=== PATIENT | female | born 1965 | race Caucasian/White ===

== ENCOUNTER 2020-01-10 08:56 | Emergency (ER) | payer OTHER, SELFPAY ==
[2020-01-10 08:59] VITALS: BP 164/84; PULSE 102; RESP 20; TEMP 36.3; O2SAT 100
--- NOTE | 2020-01-10 09:18 | ED.GENADULT ---
HPI - General Adult General Chief complaint: Psychiatric Symptoms Stated complaint: Manic crisis Time Seen by Provider: 01/10/20 09:17 Source: patient Mode of arrival: ambulatory Limitations: no limitations History of Present Illness HPI narrative: Patient is a 54-year-old female with a history of bipolar disorder, has had previous manic outbreaks in the past who presents for inability to sleep and feeling as if she is having a manic episode. Patient states her symptoms have been ongoing for a week but worsened over the past 2 days, patient has been without sleep and is feeling very restless and agitated. She states that the social isolation due to the pandemic has caused her to feel very manic. She recently increased her Effexor dose per her psychiatrist, this occurred last week, but patient did not take the extra dose last night as patient was feeling like maybe that was contributing to her symptoms. She denies thoughts of wanting to hurt herself or harm others. No hallucinations. Related Data Home Medications Medication Instructions Recorded Confirmed omeprazole magnesium 20 mg 20 mg PO DAILY 06/04/19 06/28/19 tablet,delayed release cariprazine 3 mg capsule 3 mg PO DAILY 06/10/19 06/28/19 venlafaxine 150 mg 37.5 mg PO BID 06/10/19 06/28/19 capsule,extended release 24 hr acetazolamide See Rx Instructions .ROUTE .COMPLEX 12/19/19 12/19/19 Allergies Allergy/AdvReac Type Severity Reaction Status Date / Time doxycycline Allergy Unknown Hives Verified 01/10/20 09:14 lisinopril Allergy Unknown Hives Verified 01/10/20 09:14 Review of Systems Review of Systems: Narrative: CONSTITUTIONAL: Denies fever CARDIOVASCULAR: Denies chest pain RESPIRATORY: Denies cough or dyspnea. GASTROINTESTINAL: Denies abdominal pain SKIN: Denies rash MUSCULOSKELETAL: Denies back pain NEUROLOGIC: Denies headache PMF Surgical History Surgical History History of carpal tunnel surgery Family History Family History Father Hypertension Mother Hypertension Asthma Diabetes mellitus Family history of diabetes mellitus in first degree relative Sibling Hypertension Family history of elevated blood lipids Asthma Family history of hypercholesterolemia Grandparent Cerebrovascular accident Family history of coronary artery disease Other Acute myocardial infarction Social History Social History Smoking status: Former smoker Smoking end date: 06/25/15 Alcohol intake: current Exam Narrative: Exam Narrative: GENERAL: Awake, alert, conversant, fatigued appearing HEAD: Normocephalic, atraumatic. EYES: PERRLA and EOMI. ENT: Nares clear, no rhinorrhea or epistaxis. Mucous membranes moist. NECK: Supple. CHEST: No respiratory distress, breathing even and non labored HEART: Regular rate, sinus rhythm ABDOMEN:Non distended, non tender EXTREMITIES: Normal range of motion. No edema. SKIN: Warm, dry, no rash. NEURO:No focal deficits. Alert and oriented x3 Psych: Denies homicidal or suicidal ideation, reports agitation Course Vital Signs Vital signs: Vital Signs Temperature 36.3 C L 01/10/20 08:59 Pulse Rate 102 H 01/10/20 08:59 Respiratory Rate 20 01/10/20 08:59 Blood Pressure 164/84 H 01/10/20 08:59 Pulse Oximetry 100 01/10/20 08:59 Temperature 36.3 C L 01/10/20 08:59 Pulse Rate 98 01/10/20 10:53 Respiratory Rate 18 01/10/20 10:53 Blood Pressure 150/106 H 01/10/20 10:53 Pulse Oximetry 100 01/10/20 10:53 Medical Decision Making MDM Narrative Medical decision making narrative: Patient presented for evaluation of sleeplessness, concerned that she was having worsening marleny. Patient has history of manic episode in the past, and is worried that she might have a manic episode coming on if she does not get any medicatio
--- NOTE | 2020-01-10 09:20 | PC.NURSE ---
Pt states that she called [place] this morning was told to come to [place] and we would do intake with them over the phone. Pt upset that we do not do that and that we have to go through the psych clearance. Pt states she has not been able to sleep well since and has lack of concentration and states that she wants to get it under control before she has a psychotic episode. Pt calm and cooperative at this time
[2020-01-10 09:30] LABS: Basophils Absolute Auto 0.1 K/mm3 (0.0-0.1); Basophils Percent Auto 0.5 % (0.2-1.2); Eosinophils Percent Auto 0.3 % (0-4.4); Hematocrit 45.9 % (37.0-47.0); Hemoglobin 15.4 g/dL (12.0-15.0); Immature Granulocyte Absolute 0.05 K/mm3 (0.00-0.031); Immature Granulocyte Percent A 0.5 % (0-0.5); Lymphocytes Absolute Auto 3.05 K/mm3 (0.9-3.2); Lymphocytes Percent Auto 30.3 % (18.3-44.2); Mean Corpuscular HGB Conc 33.6 g/dl (32-36); Mean Corpuscular Hemoglobin 30.3 pg (26-34); Mean Corpuscular Volume 90.2 fl (80-100); Mean Platelet Volume 9.5 fl (7.4-10.4); Monocytes Absolute Auto 0.7 K/mm3 (0.1-0.6); Monocytes Percent Auto 7.1 % (2.6-8.5); Neutrophils Absolute Auto 6.2 K/mm3 (1.3-6.7); Neutrophils Percent Auto 61.3 % (45.5-73.1); Platelet Count Result 342 k/mm3 (150-375); Red Blood Count 5.09 M/mm3 (4.2-5.4); Red Cell Distribution Width 13.2 % (11.5-14.5); White Blood Count 10.1 K/mm3 (4.5-10.0)
[2020-01-10 09:33] LABS: Add Urine Microscopic? NO; Appearance Urine Clear (Clear); Bacteria Urine Trace /hpf; Bilirubin Urine Negative (Negative); Blood Urine Negative (Negative); Color Urine Straw (Yellow); Glucose Urine UA Negative (Negative); Ketones Urine Negative (Negative); Leukocyte Esterase Ur Negative LEU/UL (Negative); Nitrate Urine Negative (Negative); Protein Urine Negative (Negative); RBC Urine 0-2 /hpf (0-2); Specific Grav Ur 1.005 (1.001-1.035); Squamous Epithelial Cell Urine Occasional /hpf (Few); Urobilinogen Urine Negative mg/dL (<2.0); WBC Urine 0-3 /hpf
[2020-01-10 09:41] LABS: Amphetamine Screen Urine Negative (Negative); Barbiturate Screen Urine Negative (Negative); Benzodiazepines Screen Urine Negative (Negative); Cannabinoid Screen Urine Negative (Negative); Cocaine Screen Urine Negative (Negative); Methadone Screen Urine Negative (Negative); Opiate Screen Urine Negative (Negative); Phencyclidine Screen Urine Negative (Negative)
[2020-01-10 09:42] LABS: Ethanol < 10 mg/dL (<10)
[2020-01-10 09:46] LABS: Alanine Aminotransferase 37 U/L (4-35); Albumin Level 4.7 g/dL (3.5-5.1); Alkaline Phosphatase 92 U/L (38-126); Aspartate Amino Transferase 24 U/L (14-36); Bilirubin,Total 0.3 mg/dL (0.2-1.3); Blood Urea Nitrogen 12 mg/dL (7-17); Calcium 9.2 mg/dL (8.4-10.2); Carbon Dioxide 23 mmol/L (22-30); Chloride 102 mmol/L (98-107); Estimated CRCL calculation 116 ml/min; Estimated Glomerular Filt Rate > 60; Glucose 106 mg/dL (65-105); Potassium 3.3 mmol/L (3.4-5.0); Sodium 137 mmol/L (137-145)
[2020-01-10] MEDS: LORazepam 1 MG TABLET PO (10:49)
[2020-01-10 10:53] VITALS: BP 150/106; PULSE 98; RESP 18; O2SAT 100
== END 2020-01-10 11:23 | disposition home or self-care (01) ==
PROVIDERS: Emergency Provider Emergency Medicine; PCP Internal Medicine
DX: F31.9 Bipolar disorder, unspecified (principal)
CPT/HCPCS: 36415; 80053; 80307; 81003; 81025; 84443; 85025; 99283; A9270

== ENCOUNTER 2021-03-31 13:48 | Outpatient (CLI) | payer OTHER, SELFPAY ==
--- NOTE | ~2021-03-31 | DEXA_ITS ---
Bone Density Report Name: Suha Schwartz Age: 56 Sex: Female Ethnicity: White Date of : 1965 Indication: postmenopausal; height loss; Referring Provider: Tiffany Adkins Study: Bone densitometry was performed. Exam Date: March 31, 2021 Accession number: [id number] Bone Density: Region BMD T-score Z-score Classification AP Spine (L1-L4) 1.267 2.0 3.1 Normal Femoral Neck (Left) 0.813 -0.3 0.7 Normal Total Hip (Left) 1.063 1.0 1.7 Normal Total Hip Bilateral Avg 1.071 1.1 1.8 Normal Femoral Neck (Right) 0.802 -0.4 0.6 Normal Total Hip (Right) 1.078 1.1 1.8 Normal World Health Organization criteria for BMD impression classify patients as: Normal (T-score at or above -1.0), Osteopenia (T-score between -1.0 and -2.5), or Osteoporosis (T-score at or below -2.5). 10-year Fracture Risk: FRAX not reported because: All T-scores for Spine Total, Hip Total, Femoral Neck at or above -1.0 Clinical Information Provided by Patient: Patient maximum height was 63.5 Menopause Age: 51 No regular weight bearing exercise Drinks caffeinated beverages Onset of menses at age 15 Number of children 0 Impression: The patient has normal bone mass. Discussion: BONE DENSITY IS ABOVE THE MINIMUM DESIRABLE LEVEL AT ALL SKELETAL SITES TESTED. This patient?s bone mineral density is above the minimum desirable level (T-score -1.0 or better) at all sites measured. The patient should follow a healthful lifestyle (good nutrition with adequate calcium and vitamin D, and appropriate weight-bearing exercise). Follow-Up: Consider repeating this study in 5 years or sooner if there is some new clinical indication. Reported by: [facility] on 03/31/2021 2:19:00 PM. Reviewed, dictated and finalized at location A. [facility]
--- NOTE | ~2021-03-31 | MM_ITS ---
EXAMINATION: MM screening [facility] BI w matilde HISTORY: Screening mammogram TECHNIQUE: Craniocaudal and mediolateral oblique 3-D tomosynthesis images were obtained and synthetic 2-D images were generated. CAD analysis was submitted and interpreted. COMPARISON: 01/18/2019, 05/12/2017, 11/12/2014 BREAST PARENCHYMAL COMPOSITION: There are scattered areas of fibroglandular density. FINDINGS: There is no evidence of suspicious mass, calcification, or architectural distortion to sugg est malignancy in either breast. There has been no suspicious interval change. IMPRESSION: 1. No mammographic evidence of malignancy. 2. Recommend routine screening mammography in one year. BI-RADS Category 1: Negative Reviewed, dictated and finalized at location A.
== END 2021-03-31 13:49 | disposition home or self-care (01) ==
LOC: ANHIMG 13:50
PROVIDERS: PCP Internal Medicine; Visit Provider Nurse Practitioner
DX: Z12.31 Encounter for screening mammogram for malignant neoplasm of breast (principal); Z78.0 Asymptomatic menopausal state
CPT/HCPCS: 77063; 77067; 77080

== ENCOUNTER 2021-05-09 01:57 | Day surgery (SDC) | payer OTHER, SELFPAY ==
[2021-04-25 13:43] VITALS: BMI 41.0
[2021-05-09 07:39] VITALS: BP 142/94; PULSE 93; RESP 18; TEMP 36.3; O2SAT 98
[2021-05-09] MEDS: LACTATED RINGERS 1,000 ML 150 ML IV CONT (07:42)
--- NOTE | 2021-05-09 07:51 | WPDANESEPPF ---
Anes - Initial Pre Proc Eval Procedure: Operation Date: 05/09/21 08:30 Proposed Procedures p Screening Colonoscopy - Armando Campa MD Date/Time: 05/09/21 07:51 Surgeon: Armando Campa MD Pre Op Diagnosis: hx of colon polyps Patient Data Age: 56 Gender: F Height: 1.6 m Weight: 108.6 kg Last Vital Signs Temp 36.3 C L 05/09/21 07:39 Pulse 93 05/09/21 07:39 Resp 18 05/09/21 07:39 BP 142/94 H 05/09/21 07:39 Pulse Ox 98 05/09/21 07:39 Allergies Allergy/AdvReac Type Severity Reaction Status Date / Time doxycycline Allergy Mild Hives Verified 05/09/21 07:38 lisinopril Allergy Mild Hives Verified 05/09/21 07:38 Home Medications Medication Instructions Recorded Confirmed Type benztropine 1 mg tablet 1 mg PO BID tablet 11/23/20 05/09/21 History buspirone 15 mg tablet 15 mg PO TID 11/23/20 05/09/21 History escitalopram oxalate 20 mg tablet 20 mg PO DAILY 11/23/20 05/09/21 History haloperidol 5 mg tablet 15 mg PO DAILY tablet 11/23/20 05/09/21 History famotidine 40 mg tablet 40 mg PO DAILY #90 tablet 02/08/21 05/09/21 Rx valsartan-hydrochlorothiazide 1 tablet PO DAILY 04/25/21 05/09/21 History Patient hx anesthesia problems: none Family hx anesthesia problems: none Results Review: All pre-operative results and documents have been reviewed as part of the pre-operative evaluation. [facility] Past Medical History Medical History (Updated 05/09/21 @ 07:53 by Ayaz Fraser MD) Adult hypothyroidism Benign essential hypertension Bipolar affective disorder Carpal tunnel syndrome on both sides Encounter for long-term (current) use of other medications Former smoker IGT (impaired glucose tolerance) Morbid obesity with BMI of 40.0-44.9, adult Nummular eczema HEAVENLY on CPAP Other and unspecified hyperlipidemia Papilledema Pseudotumor cerebri Trigger thumb, right thumb Surgical History Surgical History History of carpal tunnel surgery Family History Family History Father Hypertension Mother Hypertension Asthma Diabetes mellitus Family history of diabetes mellitus in first degree relative Sibling Hypertension Family history of elevated blood lipids Asthma Family history of hypercholesterolemia Grandparent Cerebrovascular accident Family history of coronary artery disease Other Acute myocardial infarction Social History Social History Smoking packs per day: 1 Smoking cigarettes per day: 20.0 Years smoked: 15 Smoking pack-years: 15.00 Smoking status: Former smoker Tobacco type: cigarettes Second hand tobacco smoke exposure: Yes Smoking end date: 06/25/15 Alcohol intake: current Drinks per week: 4 Alcohol use details: Social Living arrangements: alone Spiritual care concerns: No Anes - Eval Final PreProcedure Day of Procedure 05/09/21 07:51 Patient weight: obese Heart: regular rate and rhythm Lungs: clear to auscultation and normal air movement Airway: Mallampati scale class II Neurological: alert and oriented Last oral intake: >/= 8 hours ASA classification: III Emergent: no Anesthetic plan: proceed Anesthesia type and monitoring: general GIVS Results Review: All pre-operative results and documents have been reviewed as part of the pre-operative evaluation. Informed Consent: The patient's anesthetic plan and its attendant risks and benefits were discussed with the patient/family/POA. Questions were solicited and answers provided to the satisfaction of the patient/family/POA.
--- NOTE | 2021-05-09 08:16 | PM.HPGS ---
History of Present Illness History of Present Illness Consent: Risks, benefits, and alternatives have been discussed and questions answered. Patient agrees to proceed with procedure. Chief complaint: hx of colon polyps Narrative: Suha Schwartz is a 56 year old female here for first screening colonoscopy Review of Systems Constitutional: Constitutional: Denies headache(s) and Denies weakness Eyes: Eyes: Denies blurry vision ENT: Reports Normal hearing present, Denies headache(s) and Denies neck pain Cardiovascular: Cardiovascular: Denies chest pain and Denies dyspnea Respiratory: Respiratory: Denies dyspnea Gastrointestinal: Gastrointestinal: Reports no additional gastrointestinal complaints Genitourinary: Genitourinary: Denies dysuria Musculoskeletal: Musculoskeletal: Denies neck pain Integumentary/Breasts: Skin/Breast: Denies dry skin Neurologic: Reports Normal hearing present, Denies headache(s) and Denies weakness Psychiatric: Psychiatric: Denies anxiety Endocrine: Endocrine: Denies change in body appearance Hematologic/Lymphatic: Hematologic/Lymphatic: Denies easy bleeding Allergic/Immunologic: Allergic/Immunologic: Denies urticaria PMFSH Past Medical History Medical History (Updated 05/09/21 @ 08:17 by Armando Campa MD) Adult hypothyroidism Benign essential hypertension Bipolar affective disorder Carpal tunnel syndrome on both sides Colon cancer screening Encounter for long-term (current) use of other medications Former smoker IGT (impaired glucose tolerance) Morbid obesity with BMI of 40.0-44.9, adult Nummular eczema HEAVENLY on CPAP Other and unspecified hyperlipidemia Papilledema Pseudotumor cerebri Trigger thumb, right thumb Surgical History Surgical History History of carpal tunnel surgery Family History Family History Father Hypertension Mother Hypertension Asthma Diabetes mellitus Family history of diabetes mellitus in first degree relative Sibling Hypertension Family history of elevated blood lipids Asthma Family history of hypercholesterolemia Grandparent Cerebrovascular accident Family history of coronary artery disease Other Acute myocardial infarction Social History Social History Smoking packs per day: 1 Smoking cigarettes per day: 20.0 Years smoked: 15 Smoking pack-years: 15.00 Smoking status: Former smoker Tobacco type: cigarettes Second hand tobacco smoke exposure: Yes Smoking end date: 06/25/15 Alcohol intake: current Drinks per week: 4 Alcohol use details: Social Living arrangements: alone Spiritual care concerns: No Meds Home Medications and Allergies Home Medications Medication Instructions Recorded Confirmed Type benztropine 1 mg tablet 1 mg PO BID tablet 11/23/20 05/09/21 History buspirone 15 mg tablet 15 mg PO TID 11/23/20 05/09/21 History escitalopram oxalate 20 mg tablet 20 mg PO DAILY 11/23/20 05/09/21 History haloperidol 5 mg tablet 15 mg PO DAILY tablet 11/23/20 05/09/21 History famotidine 40 mg tablet 40 mg PO DAILY #90 tablet 02/08/21 05/09/21 Rx valsartan-hydrochlorothiazide 1 tablet PO DAILY 04/25/21 05/09/21 History Allergies Allergy/AdvReac Type Severity Reaction Status Date / Time doxycycline Allergy Mild Hives Verified 05/09/21 07:38 lisinopril Allergy Mild Hives Verified 05/09/21 07:38 Vital Signs Vital Signs - 24 hr 05/09/21 07:39 Temperature 97.3 F L Pulse Rate 93 Respiratory Rate 18 Blood Pressure 142/94 H Pulse Oximetry 98 Exam Const: General: comfortable and no acute distress HENMT: General nose exam: Normal nares present Eyes: General: appearance normal, both eyes and all related structures Neck: Neck: no JVD Resp: Auscultation: clear to auscultation bilaterally Cardio:
[2021-05-09 08:43] VITALS: BP 113/78; PULSE 83; RESP 18; O2SAT 97
[2021-05-09 08:53] VITALS: BP 115/84; PULSE 82; RESP 16; O2SAT 98
[2021-05-09 09:03] VITALS: BP 121/79; PULSE 78; RESP 20; O2SAT 98
== END 2021-05-09 09:08 | disposition home or self-care (01) ==
PROVIDERS: PCP Internal Medicine; Visit Provider Internal Medicine Gastroenterology
PROC: 0DJD8ZZ Inspection of Lower Intestinal Tract, Via Natural or Artificial Opening Endoscopic (ICD-10-PCS; CPT 45378; principal; 2021-05-09 08:30)
DX: Z12.11 Encounter for screening for malignant neoplasm of colon (principal); D12.4 Benign neoplasm of descending colon; K64.8 Other hemorrhoids; K63.5 Polyp of colon; K51.80 Other ulcerative colitis without complications; E03.9 Hypothyroidism, unspecified; F31.89 Other bipolar disorder; R73.01 Impaired fasting glucose; G47.33 Obstructive sleep apnea (adult) (pediatric); E78.5 Hyperlipidemia, unspecified; Z87.891 Personal history of nicotine dependence; E66.01 Morbid (severe) obesity due to excess calories; Z68.41 Body mass index [BMI] 40.0-44.9, adult
CPT/HCPCS: 43235; 45380; 88305; J2704; J7120

== ENCOUNTER 2022-04-24 23:51 | Emergency (ER) | payer OTHER, SELFPAY ==
--- NOTE | ~2022-04-24 | XR_ITS ---
EXAMINATION: XR chest 2V DATE: 04/25/2022 00:13 INDICATION: Shortness of breath. Cough. TECHNIQUE: Frontal and lateral views of the chest were obtained. COMPARISON: Chest 2 views 05/29/2016, chest CT 05/09/2016 FINDINGS: There is mild atelectasis at left lung base. No pleural effusion or pneumothorax. The heart size is normal. IMPRESSION: 1. Mild atelectasis at left lung base. Reviewed, dictated and finalized at location A.
[2022-04-24 23:54] VITALS: BP 169/91; PULSE 100; RESP 19; TEMP 36.8; O2SAT 97
--- NOTE | 2022-04-24 23:54 | ECG_ITS ---
Measurements Intervals [place] Rate: 96 P: 64 WV: 170 QRS: 20 QRSD: 89 T: 55 QT: 325 QTc: 411 Interpretive Statements SINUS RHYTHM BORDERLINE ST-T WAVE ABNORMALITY- HIGH LAT LEADS BASELINE ARTIFACT- I, III, AVL, AVF, V4-V5 BORDERLINE ECG NO PREVIOUS ECG AVAILABLE FOR COMPARISON Electronically Signed On 04-25-2022 6:37:13 CDT by Valdo Ventura D.O.
[2022-04-25 00:14] LABS: Basophils Absolute Auto 0.1 K/mm3 (0.0-0.1); Basophils Percent Auto 0.7 % (0.2-1.2); Eosinophils Absolute Auto 0.1 K/mm3 (0-0.3); Eosinophils Percent Auto 1.5 % (0-4.4); Hematocrit 43.1 % (37.0-47.0); Hemoglobin 14.5 g/dL (12.0-15.0); Immature Granulocyte Absolute 0.04 K/mm3 (0.00-0.031); Immature Granulocyte Percent A 0.5 % (0-0.5); Lymphocytes Absolute Auto 3.31 K/mm3 (0.9-3.2); Lymphocytes Percent Auto 41.1 % (18.3-44.2); Mean Corpuscular HGB Conc 33.6 g/dl (32-36); Mean Corpuscular Hemoglobin 30.9 pg (26-34); Mean Corpuscular Volume 91.9 fl (80-100); Mean Platelet Volume 8.9 fl (7.4-10.4); Monocytes Absolute Auto 0.8 K/mm3 (0.1-0.6); Monocytes Percent Auto 10.2 % (2.6-8.5); Neutrophils Absolute Auto 3.7 K/mm3 (1.3-6.7); Platelet Count Result 314 k/mm3 (150-375); Red Blood Count 4.69 M/mm3 (4.2-5.4); Red Cell Distribution Width 12.9 % (11.5-14.5); White Blood Count 8.1 K/mm3 (4.5-10.0)
[2022-04-25 00:34] LABS: Alanine Aminotransferase 29 U/L (6-35); Albumin Level 4.5 g/dL (3.5-5.1); Alkaline Phosphatase 79 U/L (38-126); Anion Gap 13 mmol/L (8-16); Aspartate Amino Transferase 32 U/L (14-36); Bilirubin,Total 0.6 mg/dL (0.2-1.3); Blood Urea Nitrogen 9 mg/dL (7-17); Carbon Dioxide 29 mmol/L (22-30); Chloride 95 mmol/L (98-107); Estimated CRCL calculation 133 ml/min; Estimated Glomerular Filt Rate > 60; Glucose 114 mg/dL (65-110); Potassium 3.5 mmol/L (3.4-5.0); Sodium 137 mmol/L (137-145)
[2022-04-25 00:47] VITALS: PULSE 93; RESP 20; O2SAT 96
[2022-04-25] MEDS: predniSONE 40 MG, predniSONE 10 MG 50 MG PO (01:16)
[2022-04-25] MEDS: IPRATROPIUM BR 0.02% INH SOLN 0.5 MG/2.5 ML VIAL 1 MG INHALATION (01:24)
[2022-04-25] MEDS: ALBUTEROL SULFATE NEB 2.5 MG/3 ML INH 15 MG INHALATION (01:24)
[2022-04-25 01:25] VITALS: PULSE 84; RESP 18
[2022-04-25 01:30] LABS: Influenza A QL RT-PCR Negative (Negative); Influenza B QL RT-PCR Negative (Negative); SARS-CoV-2 RNA PCR Negative
[2022-04-25 01:47] VITALS: BP 142/81; PULSE 91; RESP 15; O2SAT 100
--- NOTE | 2022-04-25 02:14 | ED.URI ---
HPI - URI/Sore Throat General Chief Complaint: Upper Respiratory Infection Stated Complaint: cough Time Seen by Provider: 04/24/22 23:57 History of Present Illness HPI Narrative: Patient has had congestion, cough, runny nose for the last 5 days, recently started on antibiotics by her primary care doctor, she presented here because the coughing was starting to keep her up at night and she was also noticing some wheezing and shortness of breath. No chest pain, no lower extremity pain or swelling. Related Data Home Medications Medication Instructions Recorded Confirmed benztropine 1 mg tablet 1 mg PO BID 11/23/20 04/07/22 haloperidol 5 mg tablet 15 mg PO DAILY 11/23/20 04/07/22 vilazodone 40 mg tablet (Viibryd) 40 mg PO DAILY 08/12/21 04/07/22 Allergies Allergy/AdvReac Type Severity Reaction Status Date / Time doxycycline Allergy Mild Hives Verified 04/25/22 00:01 lisinopril Allergy Mild Hives Verified 04/25/22 00:01 Review of Systems Review of Systems: CONST: Chills. HEENT: Congestion C/V: No chest pain RESP: Cough GI: No nausea or vomiting : No dysuria. M/S: No joint pain. SKIN: No rash. NEURO: [No headache or focal numbness or weakness] PSYCH: [No depression] PMFSH Past Medical History Medical History Adult hypothyroidism Benign essential hypertension Bipolar affective disorder Carpal tunnel syndrome on both sides Colon cancer screening Encounter for long-term (current) use of other medications Former smoker IGT (impaired glucose tolerance) Morbid obesity with BMI of 40.0-44.9, adult Nummular eczema HEAVENLY on CPAP Other and unspecified hyperlipidemia Papilledema Pseudotumor cerebri Trigger thumb, right thumb Surgical History Surgical History History of carpal tunnel surgery Family History Family History Father Hypertension Mother Hypertension Asthma Diabetes mellitus Family history of diabetes mellitus in first degree relative Sibling Hypertension Family history of elevated blood lipids Asthma Family history of hypercholesterolemia Grandparent Cerebrovascular accident Family history of coronary artery disease Other Acute myocardial infarction Social History Social History Smoking packs per day: 1 Smoking cigarettes per day: 20.0 Years smoked: 15 Smoking pack-years: 15.00 Smoking status: Former smoker Tobacco type: cigarettes Second hand tobacco smoke exposure: Yes Smoking end date: 06/25/15 Alcohol intake: current Drinks per week: 4 Alcohol use details: Social Substance use: never Spiritual care concerns: No Exam Narrative: EXAMINATION OF ORGAN SYSTEMS/BODY AREAS: Constitutional: Vital signs per nursing GENERAL:[No acute distress, non-toxic appearing.] HEAD: Normal with no signs of head trauma. EYES: EOMI, conjunctiva normal ENT: Hearing grossly intact LUNGS: Nonlabored breathing. Prolonged end expiratory phase with some mild wheezing on expiration HEART: [Regular rate and rhythm] ABD: [Soft], [nontender to palpation] EXT: Normal range of motion; no lower extremity edema or tenderness SKIN: [No rashes or lesions.] NEURO: [Alert and oriented x 3. No gross focal sensory or strength deficits.] PSYCH: Normal affect Course Vital Signs Vital signs: Vital Signs Temperature 98.3 F 04/24/22 23:54 Pulse Rate 100 04/24/22 23:54 Respiratory Rate 19 04/24/22 23:54 Blood Pressure 169/91 H 04/24/22 23:54 Pulse Oximetry 97 04/24/22 23:54 Oxygen Delivery Room Air 04/24/22 23:54 Temperature 98.3 F 04/24/22 23:54 Pulse Rate 115 H 04/25/22 02:26 Respiratory Rate 18 04/25/22 02:26 Blood Pressure 152/77 H 04/25/22 02:26 Pulse Oximetry 100 04/25/22 02:26 Oxygen Delivery Room Air 04/24/22 23:59 MDM - URI/
[2022-04-25 02:26] VITALS: BP 152/77; PULSE 115; RESP 18; O2SAT 100
[2022-04-25] MEDS: ALBUTEROL SULFATE (*SP) INHALER 2 PUFF INHALATION (02:31)
[2022-04-25 02:32] VITALS: PULSE 121; RESP 18
== END 2022-04-25 02:40 | disposition home or self-care (01) ==
PROVIDERS: Emergency Provider Emergency Medicine; PCP Internal Medicine
DX: J06.9 Acute upper respiratory infection, unspecified (principal); Z20.822 Contact with and (suspected) exposure to COVID-19; E03.9 Hypothyroidism, unspecified; I10 Essential (primary) hypertension; E78.5 Hyperlipidemia, unspecified; E66.01 Morbid (severe) obesity due to excess calories; Z68.42 Body mass index [BMI] 45.0-49.9, adult; G47.33 Obstructive sleep apnea (adult) (pediatric); F31.9 Bipolar disorder, unspecified; Z87.891 Personal history of nicotine dependence; R94.31 Abnormal electrocardiogram [ECG] [EKG]
CPT/HCPCS: 36415; 71046; 80053; 85025; 87502; 93005; 94640; 99284; A9270; J7512; U0003; U0005

== ENCOUNTER → 2022-12-30 07:59 | Outpatient (CLI) | payer OTHER, SELFPAY ==
--- NOTE | ~2022-12-30 | MM_ITS ---
EXAMINATION: MM screening [facility] BI w matilde HISTORY: Screening mammogram TECHNIQUE: Craniocaudal and mediolateral oblique 3-D tomosynthesis images were obtained and synthetic 2-D images were generated. CAD analysis was submitted and interpreted. COMPARISON: 03/31/2021, 01/18/2019, 05/12/2017 BREAST PARENCHYMAL COMPOSITION: There are scattered areas of fibroglandular density. FINDINGS: No suspicious mass, calcification, or architectural distortion are identified in either kristian ast to suggest malignancy. There has been no suspicious interval change. IMPRESSION: 1. No mammographic evidence of malignancy. 2. Recommend routine screening mammography in one year. BI-RADS Category 1: Negative Reviewed, dictated and finalized at location B.
== END ==
PROVIDERS: PCP Nurse Practitioner; Visit Provider Obstetrics & Gynecology
DX: Z12.31 Encounter for screening mammogram for malignant neoplasm of breast (principal)
CPT/HCPCS: 77063; 77067

== ENCOUNTER 2023-02-23 16:53 | Emergency (ER) | payer OTHER, SELFPAY ==
[2023-02-23 17:08] VITALS: BP 168/98; PULSE 84; RESP 16; TEMP 36.2; O2SAT 97
--- NOTE | 2023-02-23 17:27 | ED.EAR ---
HPI - Ear Problem General Chief complaint: Ear Stated complaint: Ear bleed Time Seen by Provider: 02/23/23 17:28 Source: patient, RN notes reviewed and old records reviewed Mode of arrival: ambulatory Limitations: no limitations History of Present Illness HPI Narrative: 58-year-old female presents to the [facility] with complaints of bleeding from the right ear. States that she was using a Q-tip when she noticed bleeding. States he uses Q-tips daily to remove wax. Patient does report that she was using her Q-tips aggressively. States that her ears canals were itching and felt like she had a lot of wax in them. Related Data Home Medications Medication Instructions Recorded Confirmed vilazodone 40 mg tablet (Viibryd) 40 mg PO DAILY 08/12/21 02/23/23 haloperidol 5 mg tablet 5 mg PO DAILY 06/09/22 02/23/23 benztropine 1 mg tablet 1 mg PO DAILY 10/20/22 02/23/23 Allergies Allergy/AdvReac Type Severity Reaction Status Date / Time doxycycline Allergy Mild Hives Verified 02/23/23 15:34 lisinopril Allergy Mild Hives Verified 02/23/23 15:34 Review of Systems Review of Systems: All systems reviewed & are unremarkable except as noted in HPI and below Constitutional: Constitutional: Reports no additional constitutional complaints Eyes: Eyes: Reports no additional eye complaints ENT: Reports as per HPI and Reports otalgia (Right) Cardiovascular: Cardiovascular: Reports no additional cardiovascular complaints, Denies chest pain and Denies dyspnea Respiratory: Respiratory: Reports no additional respiratory complaints, Denies chest congestion, Denies cough and Denies dyspnea Gastrointestinal: Gastrointestinal: Reports no additional gastrointestinal complaints, Denies abdominal pain, Denies nausea and Denies vomiting Musculoskeletal: Musculoskeletal: Reports no additional musculoskeletal complaints Integumentary/Breasts: Skin/Breast: Reports system reviewed and no additional complaints, except as docu Neurologic: Reports system reviewed and no additional complaints, except as documented Psychiatric: Psychiatric: Reports no additional psychiatric complaints Allergic/Immunologic: Allergic/Immunologic: Reports no additional allergic/immunologic complaints PMFSH Past Medical History Medical History Adult hypothyroidism Benign essential hypertension Bipolar affective disorder Carpal tunnel syndrome on both sides Colon cancer screening Encounter for long-term (current) use of other medications Former smoker IGT (impaired glucose tolerance) Morbid obesity with BMI of 40.0-44.9, adult Nummular eczema HEAVENLY on CPAP Other and unspecified hyperlipidemia Papilledema Pseudotumor cerebri Trigger thumb, right thumb Surgical History Surgical History History of carpal tunnel surgery Family History Family History Father Hypertension Mother Hypertension Asthma Diabetes mellitus Family history of diabetes mellitus in first degree relative Sibling Hypertension Family history of elevated blood lipids Asthma Family history of hypercholesterolemia Grandparent Cerebrovascular accident Family history of coronary artery disease Other Acute myocardial infarction Social History Social History Smoking packs per day: 1 Smoking cigarettes per day: 20.0 Years smoked: 15 Smoking pack-years: 15.00 Smoking status: Former smoker Tobacco type: cigarettes Second hand tobacco smoke exposure: Yes Smoking end date: 06/25/15 Alcohol intake: current Drinks per week: 4 Alcohol use details: Social, moderate Substance use: never Substance use type: does not use Lack of Transportation: No Lack of Food: Never True Current Housing: I Have Housing Concerned About Future Housing: No Diffic
== END 2023-02-23 17:42 | disposition home or self-care (01) ==
PROVIDERS: Emergency Provider Nurse Practitioner; PCP Nurse Practitioner
DX: S00.411A Abrasion of right ear, initial encounter (principal); X58.XXXA Exposure to other specified factors, initial encounter; E03.9 Hypothyroidism, unspecified; I10 Essential (primary) hypertension; E66.01 Morbid (severe) obesity due to excess calories; Z68.43 Body mass index [BMI] 50.0-59.9, adult; G47.33 Obstructive sleep apnea (adult) (pediatric); F31.9 Bipolar disorder, unspecified; Z87.891 Personal history of nicotine dependence
CPT/HCPCS: 99213; G0463

== ENCOUNTER 2024-03-20 07:50 | Outpatient (CLI) | payer OTHER, SELFPAY ==
--- NOTE | 2024-04-03 13:45 | WPDSLEEPSTUD ---
Sleep Study Date of Study: 03/20/24 Ordering Provider: Tj Flores APRN Interpreting Physician: Kelsey Marcano MD Sleep Study Type: Split Polysomnogram Height: 1.6 m Weight: 142.882 kg Body Mass Index: 55.7 Neck Circumference (inches): 20.5 Solen: 19 Reason for Sleep Study Hypersomnolence; documented obstuctive sleep apnea, 06/19/2016 split night study, AHI 146.5 without REM and tana saturation 77%; optimal pressure CPAP 17 cm. 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 There is a family history of obstructive sleep apnea including a sibling and a father on CPAP. She has used CPAP previously years ago, optimal pressure was CPAP 17 cm. . She rarely awakens from sleep feeling short of breath. She never awakens at night with heartburn, belching or coughing. She always snores loudly enough that others complain about it. She does not have difficulty sleeping when she has a cold. She does not gasp for breath at night. She occasionally has breathing problems at night observed by others. She does not sweat excessively at night nor does she notice her heart pounding or beating irregularly at night. She constantly falls asleep during the day, constantly falls asleep involuntarily and occasionally, falls asleep while driving. She does not have loss of muscle tone with strong emotion. She always has daytime difficulties due to excessive sleepiness. She constantly feels paralyzed on waking or falling asleep. She frequently has vivid dreamlike scenes upon awakening or falling asleep. She rarely feels afraid to go to sleep. She does not have nightmares. She does not have dream recall. She rarely has racing thoughts. She rarely feels sad, depressed, or anxious. She rarely notices parts of her body jerking. She rarely kicks at night. She rarely has aching or crawling feelings in her legs. She rarely has any kind of leg pain at night. She does not have morning jaw pain. She rarely grinds her teeth during sleep. She is not bothered by pain during the day nor is she awakened by pain during the night. She rarely wakes up feeling stiff in the morning, rarely wakes up with sore or achy muscles. She occasionally wakes up with pain in the neck and spine. She has headaches and fatigue. Normal bedtime is 8:00 p.m. falling asleep within 30 minutes however sometimes she requires an hour to fall asleep. She typically wakes between 3 and 4 times during the night for just a brief amount of time to go to the bathroom. Her normal wake time is 5:00 a.m.. On weekends, bedtime is also 8:00 p.m. with recovery sleep, waking 8:00 a.m.. She estimates getting between 8 and 9 hours of sleep regularly. She takes naps in the afternoon or evening. A short nap lasting 10-15 minutes may be refreshing. She is usually drowsy for 3 hours or longer after waking. She feels better in the evening compared to other times of day. Habits: Tobacco: quit 2015, smoked 1 ppd x 15 yr Caffeine: 1-2 servings daily Alcohol: no longer Recreational substances: none PMFSH Past Medical History Medical History Adult hypothyroidism Benign essential hypertension Bipolar affective disorder Carpal tunnel syndrome on both sides Colon cancer screening Encounter for long-term (current) use of other medications Former smoker IGT (impaired glucose tolerance) Morbid obesity with BMI of 40.0-44.9, adult Nummular eczema HEAVENLY on CPAP Other and unspecified hyperlipidemia Papilledema Pseudotumor cerebri Right ear pain Trigger thumb, right thumb Surgical History Surgical History History of carpal tunnel surgery Family History Family History Father , Leukemia Hypertension Mother Hypertension Asth
[2024-04-03 14:12] VITALS: BMI 55.7
== END 2024-03-21 06:36 | disposition home or self-care (01) ==
LOC: ANHCSM 07:52
PROVIDERS: PCP Nurse Practitioner; Visit Provider Nurse Practitioner
DX: G47.33 Obstructive sleep apnea (adult) (pediatric) (principal); Z68.43 Body mass index [BMI] 50.0-59.9, adult
CPT/HCPCS: 95811

== ENCOUNTER 2024-04-25 20:34 | Emergency (ER) | payer OTHER, SELFPAY ==
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
[2024-04-25 20:36] VITALS: BP 154/93; PULSE 96; RESP 20; TEMP 36.3; O2SAT 96
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
[2024-04-25] MEDS: ACETAMINOPHEN 500 MG TABLET 1000 MG PO (21:44)
[2024-04-25] MEDS: IBUPROFEN 600 MG TABLET PO (21:45)
--- NOTE | 2024-04-25 22:34 | PC.NURSE ---
patient came out of room at this time asking about how long it will be before radiology arrives. pt. informed that ER goes by acuity. patient then asked for water, same given.
--- NOTE | 2024-04-25 22:56 | PC.NURSE ---
patient in ct at this time.
== END 2024-04-26 00:22 | disposition home or self-care (01) ==
PROVIDERS: Emergency Provider Physician Assistant; PCP Nurse Practitioner
DX: S13.4XXA Sprain of ligaments of cervical spine, initial encounter (principal); I10 Essential (primary) hypertension; E78.5 Hyperlipidemia, unspecified; E03.9 Hypothyroidism, unspecified; E66.01 Morbid (severe) obesity due to excess calories; Z68.43 Body mass index [BMI] 50.0-59.9, adult; G47.33 Obstructive sleep apnea (adult) (pediatric); Z87.891 Personal history of nicotine dependence; Z79.899 Other long term (current) drug therapy; V49.40XA Driver injured in collision with unspecified motor vehicles in traffic accident, initial encounter
CPT/HCPCS: 72125; 72128; 72131; 99284; A9270

== ENCOUNTER 2024-06-07 10:07 | Outpatient (CLI) | payer OTHER, SELFPAY ==
--- NOTE | ~2024-06-07 | MM_ITS ---
EXAMINATION: MM screening aliyah BI w matilde HISTORY: Screening TECHNIQUE: Craniocaudal and mediolateral oblique 3-D tomosynthesis images were obtained and synthetic 2-D images were generated. CAD analysis was submitted and interpreted. COMPARISON: Comparison to multiple prior studies sequentially, with oldest reviewed study dated 11/12. BREAST PARENCHYMAL COMPOSITION: Not dense: There are scattered areas of fibroglandular density. FINDINGS: There is no evidence of suspicious mass, calcification, or architectural distortion to sugg est malignancy in either breast. There has been no suspicious interval change. IMPRESSION: 1. No mammographic evidence of malignancy. 2. Recommend routine screening mammography in one year. BI-RADS Category 1: Negative Reviewed, dictated and finalized at location B. CADDY
== END 2024-06-07 10:08 | disposition home or self-care (01) ==
PROVIDERS: PCP Nurse Practitioner; Visit Provider Internal Medicine
DX: Z12.31 Encounter for screening mammogram for malignant neoplasm of breast (principal)
CPT/HCPCS: 77063; 77067

== ENCOUNTER → 2024-07-03 15:27 | Outpatient (REF) | payer OTHER, SELFPAY | LOC: ANHLAB 15:27 | PROVIDERS: Visit Provider Plastic Surgery | DX: D22.5 Melanocytic nevi of trunk (principal) | CPT/HCPCS: 88305 ==

== ENCOUNTER 2024-11-21 01:28 | Day surgery (SDC) | payer OTHER, SELFPAY ==
[2024-11-14 09:48] VITALS: BMI 55.8
--- OUTSIDE RECORDS SUMMARY | 2024-11-21 01:30 | XMS_ITS ---
Author Organization [facility] Address [address] [place] [address] Care Team Providers Care Cns Name Role Phone Gee Branch DO Primary Care Provider Adenike Bryant Unavailable [phone] Allergies Allergen (clinical drug ingredient) Drug/Non Drug Allergy documented on EMR Reaction Allergy Type Onset Date Status Lisinopril Unknown Drug Allergy 09/27/2023 Activ e doxycycline Doxycycline Unknown Drug Allergy 09/27/2023 Ac tive Medications Medication SIG (Take, Route, Frequency, Duration) Notes Start Date End Date Status Saxenda 18 MG/3ML Subcutaneous 09/27/2023 Not-Taking Viibryd 40 MG 1 tablet with food Oral Once a day for 30 days Active Haloperidol 5 MG 1 tablet Orally Once a day for 90 days d/c 1 mg dose Active Benztropine Mesylate 1 MG 1 tablet Orally Once a day for 30 days Active Haloperidol 1 MG 1 tablet Oral bedtime for 30 days Active Spironolactone 50 MG Oral 09/27/2023 Active BD ULTRA-FINE PEN NEEDLE 32 gauge x MISCELLANEOUS *Reorder from [facility] for eRx and Interaction Alerts* 09/27/2023 Active Vilazodone HCl 40 MG Oral 09/27/2023 Active Omeprazole 20 MG Oral 09/27/2023 Ac tive acetaZOLAMIDE ER 500 MG Oral 09/27/2023 Active Valsartan 160 MG Oral 09/27/2023 Ac tive Social History Sex Assigned At : Social History Observation Description Sex Assigned At Female Encounters Encounter Location Date Provider Diagnosis [facility] [employer] [facility] [address] [place] [address] 05/09/2024 Adenike Knutson Bipolar disorder, in partial remission, most recent episode hypomanic F31.71 ; Generalized anxiety disorder F41.1 ; Bipolar disorder, current episode depressed, mild F31.31 ; Other symptoms and signs involving the musculoskeletal system R29.898 ; 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 The patient experiences excessive daytime sleepiness and fatigue. - Plan: Patient to obtain a BiPAP machine. Encourage patient to use the machine consistently and follow up with the sleep specialist for further evaluation and management. 1. Bipolar I disorder - AIMS= 0 09/06/21 AIMS= 0 08/14/23 Haldol 5 mg 1 tablet bedtime monitor for psychosis, marleny, delusions, paranoia and depression educated on all medications, metabolic and movement d/o educated on all medications, benefits, side effects and risk, and educated on depression, anxiety, and ADHD, mood d/o and educated on compliance of medications, metabolic and movement d/o education appointment's, continue therapy discussion with patient about course of treatmentand patient instructions. education on serotonin syndrome obtain labs PCP Prescription Monitoring Report reviewed SSRI/SNRI side effects discussed including but not limited to, gastric upset, nausea, vomiting, diarrhea and/or constipation, weight changes, sexual side effects including loss of libido, increased suicidal thoughts/behavior s in children and young adults, and serotonin syndrome. Second generation antipsychotics (SGAs) have metabolic syndrome issues with weight gain, increase in prolactin, increased waist circumference, increased lipids, and increased glucose. Thus routine monitoring of weight, metabolic labs, etc. is indicated. A general rank ordering of antipsychotics that have the greatest to the least risk of metabolic effects is olanzapine, quetiapine, risperidone, ziprasidone, and aripiprazole. However, weight gain can occur with all of these drugs and considerable variability exists among patients receiving the same drug regarding the risk of metabolic effects. Anti-psychotic agents not only increase the risk of metabolic disorder, they also increase the risk of CVA, akathisia, and movement disorders including EPS or tardive dyskinesia (more common with first generation antipsychotics) and more. 2. Generalized anxiety disorder - Viibryd 40 mg daily and eat 350 calories 3. Abnormal movement - Benztropine 1 mg daily AIMS -0 09/06/21 AIMS=0 12/22/22 AIMS= 0 08/14/23 stable 4. Long-term drug therapy 05/09/2024 Generalized anxiety disorder (ICD-10 - F41.1) Sleep Apnea - Assessment: The patient reports a sleep study diagnosis of severe sleep apnea with 156 events per hour and oxygen levels dropping to 71%. The patient experiences excessive daytime sleepiness and fatigue. - Plan: Patient to obtain a BiPAP machine. Encourage patient to use the machine consistently and follow up with the sleep specialist for further evaluation and management. 1. Bipolar I disorder - AIMS= 0 09/06/21 AIMS= 0 08/14/23 Haldol 5 mg 1 tablet bedtime monitor for psychosis, marleny, delusions, paranoia and depression educated on all medications, metabolic and movement d/o educated on all medications, benefits, side effects and risk, and educated on depression, anxiety, and ADHD, mood d/o and educated on compliance of medications, metabolic and movement d/o education appointment's, continue therapy discussion with patient about course of treatmentand patient instructions. education on serotonin syndrome obtain labs PCP Prescription Monitoring Report reviewed SSRI/SNRI side effects discussed including but not limited to, gastric upset, nausea, vomiting, diarrhea and/or constipation, weight changes, sexual side effects including loss of libido, increased suicidal thoughts/behavior s in children and young adults, and serotonin syndrome. Second generation antipsychotics (SGAs) have metabolic syndrome issues with weight gain, increase in prolactin, increased waist circumference, increased lipids, and increased glucose. Thus routine monitoring of weight, metabolic labs, etc. is indicated. A general rank ordering of antipsychotics that have the greatest to the least risk of metabolic effects is olanzapine, quetiapine, risperidone, ziprasidone, and aripiprazole. However, weight gain can occur with all of these drugs and considerable variability exists among patients receiving the same drug regarding the risk of metabolic effects. Anti-psychotic agents not only increase the risk of metabolic disorder, they also increase the risk of CVA, akathisia, and movement disorders including EPS or tardive dyskinesia (more common with first generation antipsychotics) and more. 2. Generalized anxiety disorder - Viibryd 40 mg daily and eat 350 calories 3. Abnormal movement - Benztropine 1 mg daily AIMS -0 09/06/21 AIMS=0 12/22/22 AIMS= 0 08/14/23 stable 4. Long-term drug therapy 05/09/2024 Bipolar disorder, current episode depressed, mild (ICD-10 - F31.31) Sleep Apnea - Assessment: The patient reports a sleep study diagnosis of severe sleep apnea with 156 events per hour and oxygen levels dropping to 71%. The patient experiences excessive daytime sleepiness and fatigue. - Plan: Patient to obtain a BiPAP machine. Encourage patient to use the machine consistently and follow up with the sleep specialist for further evaluation and management. 1. Bipolar I disorder - AIMS= 0 09/06/21 AIMS= 0 08/14/23 Haldol 5 mg 1 tablet bedtime monitor for psychosis, marleny, delusions, paranoia and depression educated on all medications, metabolic and movement d/o educated on all medications, benefits, side effects and risk, and educated on depression, anxiety, and ADHD, mood d/o and educated on compliance of medications, metabolic and movement d/o education appointment's, continue therapy discussion with patient about course of treatmentand patient instructions. education on serotonin syndrome obtain labs PCP Prescription Monitoring Report reviewed SSRI/SNRI side effects discussed including but not limited to, gastric upset, nausea, vomiting, diarrhea and/or constipation, weight changes, sexual side effects including loss of libido, increased suicidal thoughts/behavior s in children and young adults, and serotonin syndrome. Second generation antipsychotics (SGAs) have metabolic syndrome issues with weight gain, increase in prolactin, increased waist circumference, increased lipids, and increased glucose. Thus routine monitoring of weight, metabolic labs, etc. is indicated. A general rank ordering of antipsychotics that have the greatest to the least risk of metabolic effects is olanzapine, quetiapine, risperidone, ziprasidone, and aripiprazole. However, weight gain can occur with all of these drugs and considerable variability exists among patients receiving the same drug regarding the risk of metabolic effects. Anti-psychotic agents not only increase the risk of metabolic disorder, they also increase the risk of CVA, akathisia, and movement disorders including EPS or tardive dyskinesia (more common with first generation antipsychotics) and more. 2. Generalized anxiety disorder - Viibryd 40 mg daily and eat 350 calories 3. Abnormal movement - Benztropine 1 mg daily AIMS -0 09/06/21 AIMS=0 12/22/22 AIMS= 0 08/14/23 stable 4. Long-term drug therapy 05/09/2024 Other symptoms and signs involving the musculoskeletal system (ICD-10 - R29.898) Sleep Apnea - Assessment: The patient reports a sleep study diagnosis of severe sleep apnea with 156 events per hour and oxygen levels dropping to 71%. The patient experiences excessive daytime sleepiness and fatigue. - Plan: Patient to obtain a BiPAP machine. Encourage patient to use the machine consistently and follow up with the sleep specialist for further evaluation and management. 1. Bipolar I disorder - AIMS= 0 09/06/21 AIMS= 0 08/14/23 Haldol 5 mg 1 tablet bedtime monitor for psychosis, marleny, delusions, paranoia and depression educated on all medications, metabolic and movement d/o educated on all medications, benefits, side effects and risk, and educated on depression, anxiety, and ADHD, mood d/o and educated on compliance of medications, metabolic and movement d/o education appointment's, continue therapy discussion with patient about course of treatmentand patient instructions. education on serotonin syndrome obtain labs PCP Prescription Monitoring Report reviewed SSRI/SNRI side effects discussed including but not limited to, gastric upset, nausea, vomiting, diarrhea and/or constipation, weight changes, sexual side effects including loss of libido, increased suicidal thoughts/behavior s in children and young adults, and serotonin syndrome. Second generation antipsychotics (SGAs) have metabolic syndrome issues with weight gain, increase in prolactin, increased waist circumference, increased lipids, and increased glucose. Thus routine monitoring of weight, metabolic labs, etc. is indicated. A general rank ordering of antipsychotics that have the greatest to the least risk of metabolic effects is olanzapine, quetiapine, risperidone, ziprasidone, and aripiprazole. However, weight gain can occur with all of these drugs and considerable variability exists among patients receiving the same drug regarding the risk of metabolic effects. Anti-psychotic agents not only increase the risk of metabolic disorder, they also increase the risk of CVA, akathisia, and movement disorders including EPS or tardive dyskinesia (more common with first generation antipsychotics) and more. 2. Generalized anxiety disorder - Viibryd 40 mg daily and eat 350 calories 3. Abnormal movement - Benztropine 1 mg daily AIMS -0 09/06/21 AIMS=0 12/22/22 AIMS= 0 08/14/23 stable 4. 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 The patient experiences excessive daytime sleepiness and fatigue. - Plan: Patient to obtain a BiPAP machine. Encourage patient to use the machine consistently and follow up with the sleep specialist for further evaluation and management. 1. Bipolar I disorder - AIMS= 0 09/06/21 AIMS= 0 08/14/23 Haldol 5 mg 1 tablet bedtime monitor for psychosis, marleny, delusions, paranoia and depression educated on all medications, metabolic and movement d/o educated on all medications, benefits, side effects and risk, and educated on depression, anxiety, and ADHD, mood d/o and educated on compliance of medications, metabolic and movement d/o education appointment's, continue therapy discussion with patient about course of treatmentand patient instructions. education on serotonin syndrome obtain labs PCP Prescription Monitoring Report reviewed SSRI/SNRI side effects discussed including but not limited to, gastric upset, nausea, vomiting, diarrhea and/or constipation, weight changes, sexual side effects including loss of libido, increased suicidal thoughts/behavior s in children and young adults, and serotonin syndrome. Second generation antipsychotics (SGAs) have metabolic syndrome issues with weight gain, increase in prolactin, increased waist circumference, increased lipids, and increased glucose. Thus routine monitoring of weight, metabolic labs, etc. is indicated. A general rank ordering of antipsychotics that have the greatest to the least risk of metabolic effects is olanzapine, quetiapine, risperidone, ziprasidone, and aripiprazole. However, weight gain can occur with all of these drugs and considerable variability exists among patients receiving the same drug regarding the risk of metabolic effects. Anti-psychotic agents not only increase the risk of metabolic disorder, they also increase the risk of CVA, akathisia, and movement disorders including EPS or tardive dyskinesia (more common with first generation antipsychotics) and more. 2. Generalized anxiety disorder - Viibryd 40 mg daily and eat 350 calories 3. Abnormal movement - Benztropine 1 mg daily AIMS -0 09/06/21 AIMS=0 12/22/22 AIMS= 0 08/14/23 stable 4. Long-term drug therapy 05/09/2024 Morbid (severe) obesity due to excess calories (ICD-10 - E66.01) Sleep Apnea - Assessment: The patient reports a sleep study diagnosis of severe sleep apnea with 156 events per hour and oxygen levels dropping to 71%. The patient experiences excessive daytime sleepiness and fatigue. - Plan: Patient to obtain a BiPAP machine. Encourage patient to use the machine consistently and follow up with the sleep specialist for further evaluation and management. 1. Bipolar I disorder - AIMS= 0 09/06/21 AIMS= 0 08/14/23 Haldol 5 mg 1 tablet bedtime monitor for psychosis, marleny, delusions, paranoia and depression educated on all medications, metabolic and movement d/o educated on all medications, benefits, side effects and risk, and educated on depression, anxiety, and ADHD, mood d/o and educated on compliance of medications, metabolic and movement d/o education appointment's, continue therapy discussion with patient about course of treatmentand patient instructions. education on serotonin syndrome obtain labs PCP Prescription Monitoring Report reviewed SSRI/SNRI side effects discussed including but not limited to, gastric upset, nausea, vomiting, diarrhea and/or constipation, weight changes, sexual side effects including loss of libido, increased suicidal thoughts/behavior s in children and young adults, and serotonin syndrome. Second generation antipsychotics (SGAs) have metabolic syndrome issues with weight gain, increase in prolactin, increased waist circumference, increased lipids, and increased glucose. Thus routine monitoring of weight, metabolic labs, etc. is indicated. A general rank ordering of antipsychotics that have the greatest to the least risk of metabolic effects is olanzapine, quetiapine, risperidone, ziprasidone, and aripiprazole. However, weight gain can occur with all of these drugs and considerable variability exists among patients receiving the same drug regarding the risk of metabolic effects. Anti-psychotic agents not only increase the risk of metabolic disorder, they also increase the risk of CVA, akathisia, and movement disorders including EPS or tardive dyskinesia (more common with first generation antipsychotics) and more. 2. Generalized anxiety disorder - Viibryd 40 mg daily and eat 350 calories 3. Abnormal movement - Benztropine 1 mg daily AIMS -0 09/06/21 AIMS=0 12/22/22 AIMS= 0 08/14/23 stable 4. Long-term drug therapy Plan Of Treatment Medication Medication Name Sig Start Date Stop Date Notes Viibryd 40 MG 1 tablet with food O ral Once a day for 30 days Haloperidol 5 MG 1 tablet Orally Once a day for 90 days d/c 1 mg dose Benztropine Mesylate 1 MG 1 tablet Orall y Once a day for 30 days Haloperidol 1 MG 1 tablet Oral bedtim e for 30 days Next Appt Details Provider Name:Adenike Knutson , 01/02/2025 08:45:00 AM, [address], [facility], [place], [address], Progress Notes * ERA COURTNEY LDOB: [birth year] (59 yo F)Acc No.[id number]:05/09/2024 Patient: ERA CHEN Provider: YVONNE AVNIA :1965 A ge:59 Y S ex:Female Date:05/09/2024 Address:[address] [place] [address], [facility] Pcp:Gee Branch DO Subjective: * Chief Complaints: * * HPI: H istory of Presenting Problem: Bipolar DisorderReported by pilar cintron.Type: B ipolar I hx online scams and money Notes: Follow up Bipolar and anxiety chronic stable since last visit report I am doing well I feel depression and anxiety is doing pretty well and I struggle with my weight I am tackling it with joined a gym and over all my rx is helping and keeping me stable I am having a sleep study I am tired in day and I fall asleep at work x2 and snoring and boss was concern in a meeting I fall asleep at desk, I been taking B12 and electrolytes in water, I go to bed 8-9 pm and up 5 am for gym 3 days a week other days a week 6 am and up for bathroom and back to bed and need PA for sleep study and and insurance said I do not and I have had sleep apnea before and CPAP, I been gaining weight last 60 days and new job and not working from home FT and been there 90 days, nice review from boss, 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 I listen to music and pray and I go into office 4 days a week in [place], all rx doing good no s/e, I am on not feeling sad or down no hopeless or helpless and beter situation with money and will be able to reduce amount I have to pay out and I am signed up with debt resolution person, I got a raise with new job, I am not anxious or restless and only complaint drowsy and brain fog, and appetite fine, I do greens shake daily, I do have ETOH daily 2 drinks (educated on may cause fatigue and medical issues/risk), several years ago my sleep apnea was severe, c oncentration and focus is not bad when sleepy, other that good and able to function I make mistakes when drowsy, no abnormal movement involuntary noted or reported, Viibyrd and Haldol all rx doing good and motivation and interest good, I like ot nap and rest with my weight, no psychosis no delusions no paranoia, no marleny no SI/HI and I am still dealing with money issues from [employer], I did meet another leslie online ask me for money and I told him no and ended. HX 3 major psychotic breaks since age 31, 1996, 2009, 2019 hx Auditory hallucinations ETOH 2-3 cocktails daily rx HX Abilify (weight gain and increase B/S), Haldol, Vraylar, Viibyrd. Effexor, Ambien, Cymbalta, Buspar, Lexapro. * ROS: P atient reports w eight gain (___lbs). S he reports d ry mouth. Sleep study scheduled hx severe sleep apnea S he reports G ERD (on rx) b ut reports no nausea, no vomiting, no constipation, and normal appetite. She reports i ncreased urinary frequency. She reports a rthralgias/joint pain and back pain b ut reports no difficulty walking. She reports wears glasses/contact lenses. She reports no shortness of breath when walking, no shortness of breath when lying down, and no palpitations. S he reports no cough and no shortness of breath. She reports no gait dysfunction. She reports no depression, no sleep disturbances, no alcohol abuse, no anxiety, no hallucinations, no suicidal thoughts, no mood swings, no memory loss, and no agitation. 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 * Medications: T aking Viibryd 40 MG Tablet 1 tablet with food Oral Once a day , Taking Benztropine Mesylate 1 MG Tablet 1 tablet Orally Once a day , Taking Valsartan 160 MG Tablet Oral , Taking acetaZOLAMIDE ER 500 MG Capsule Extended Release 12 Hour Oral , Taking Omeprazole 20 MG Capsule Delayed Release Oral , Taking Spironolactone 50 MG Tablet Oral , Taking Vilazodone HCl 40 MG Tablet Oral , Taking BD ULTRA-FINE PEN NEEDLE 32 gauge x 5/32 NEEDLE, DISPOSABLE MISCELLANEOUS , Notes to Pharmacist: *Reorder from [facility] for eRx and Interaction Alerts*, Taking Haloperidol 5 MG Tablet 1 tablet Orally Once a day , Notes to Pharmacist: d/c 1 mg dose, Not-Taking Saxenda 18 MG/3ML Solution Pen-injector Subcutaneous , Medication List reviewed and reconciled with the patient * Allergies: L isinopril: Allergy - Onset Date 09/27/2023, Doxycycline: Allergy - Onset Date 09/27/2023. Objective: * Vitals: * Examination: P sychiatry: Appearance: w ell-groomed, well-nourished, appears stated age, obese. Affect / mood: a ppropriate, full range. Homicidal ideation: n one. Suicidal ideation: n one. Delusions: n o. Hallucinations: n o. Impulse control: f air. Judgement: f air. Orientation: a wake, alert and oriented x 3. Speech / language: a ppropriate pitch/modulation, clear and coherent, normal rate, volume, and articulation (RVR), proper grammar used. G eneral Examination: C onstitutional:: G eneral Appearance (with 3 Vital) o verweight a nd o bese a nd alert, well-groomed, clean, well developed, and appears well rested. B ehavior: cooperative, calm, pleasant, and eye contact Good. Musculoskeletal: P sychiatric:Thought Processes * logical, C oherent thought processes, goal-directed thought process, no thought blocking, and (normal) no approximate answering. Thought Content: No suicidal ideations and suicidal: plan and unremarkable, no ideas of reference, obsessions, NO suicidal intent, and no dangerousness: suicide risk. Psychiatric Mood: * euthymic. Gait And Stance:* sitting . Muscle Strength and tone normal strength upper extremities and in lower extremities; normal muscle tone and bulk; and no tremor, tics, or involuntary movements (dyskinesia). Psychiatric: Speech: * language is appropriate for education level and rate/ fluency intact and speech is articulate and coherent and volume is normal. Psychiatric: Associations * no loosening of associations and No clang associations. Psychiatric: Abnormal or Psychotic thoughts no hallucinations. Affect: pleasant, happy, and congruent to thought content. Psychiatric Insight * is aware of psychiatric problems and acts appropriately in social situations. 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 Orientation: oriented to person, place, situation, and time; normal attention and concentrating ability; and memory intact. Attention/Concentration: attention span sustained without motivating activities. L anguage: recognize objects. Assessment: * Assessment: 1. B ipolar disorder, in partial remission, most recent episode hypomanic - F31.71 (Primary)? 2. G eneralized anxiety disorder - F41.1 3 . B ipolar disorder, current episode depressed, mild - F31.31 4 . O ther symptoms and signs involving the musculoskeletal system - R29.898 5 . O ther assisted (current) drug therapy - Z79.899 6 . M orbid (severe) obesity due to excess calories - E66.01 Sleep Apnea - Assessment: The patient reports a sleep study diagnosis of severe sleep apnea with 156 events per hour and oxygen levels dropping to 71%. The patient experiences excessive daytime sleepiness and fatigue. - Plan: Patient to obtain a BiPAP machine. Encourage patient to use the machine consistently and follow up with the sleep specialist for further evaluation and management. 1. Bipolar I disorder - AIMS= 0 09/06/21 AIMS= 0 08/14/23 Haldol 5 mg 1 tablet bedtime monitor for psychosis, marleny, delusions, paranoia and depression educated on all medications, metabolic and movement d/o educated on all medications, benefits, side effects and risk, and educated on depression, anxiety, and ADHD, mood d/o and educated on compliance of medications, metabolic and movement d/o education appointment's, continue therapy discussion with patient about course of treatmentand patient instructions. education on serotonin syndrome obtain labs PCP Prescription Monitoring Report reviewed SSRI/SNRI side effects discussed including but not limited to, gastric upset, nausea, vomiting, diarrhea and/or constipation, weight changes, sexual side effects including loss of libido, increased suicidal thoughts/behaviors in children and young adults, and serotonin syndrome. Second generation antipsychotics (SGAs) have metabolic syndrome issues with weight gain, increase in prolactin, increased waist circumference, increased lipids, and increased glucose. Thus routine monitoring of weight, metabolic labs, etc. is indicated. A general rank ordering of antipsychotics that have the greatest to the least risk of metabolic effects is olanzapine, quetiapine, risperidone, ziprasidone, and aripiprazole. However, weight gain can occur with all of these drugs and considerable variability exists among patients receiving the same drug regarding the risk of metabolic effects. Anti-psychotic agents not only increase the risk of metabolic disorder, they also increase the risk of CVA, akathisia, and movement disorders including EPS or tardive dyskinesia (more common with first generation antipsychotics) and more. 2. Generalized anxiety disorder - Viibryd 40 mg daily and eat 350 calories 3. Abnormal movement - Benztropine 1 mg daily AIMS -0 09/06/21 AIMS=0 12/22/22 AIMS= 0 08/14/23 stable 4. Long-term drug therapy Plan: * Treatment: 2. O ther symptoms and signs involving the musculoskeletal system Refill Benztropine Mesylate Tablet, 1 MG, 1 tablet, Orally, Once a day, 30 days, 30, Refills 3.? * Billing Information: * Visit Code: * Procedure Codes: * Electronic signature of YVONNE Krishnamurthy on 11/21/2024 at 01:30 AM CDT Sign off status: Pending * Provider: YVONNE AVINA Date: 07/09/2023 Generated for Hesham contreras/Prateek/Iván on: 11/21/2024 01:30 AM CDT History and Physical Notes * HPI (History of Present Illness) Category Sub-Category Detail Notes Category Not es History of Presenting Problem Bipolar DisorderReported by patient.Type: Bipolar I hx online scams and money Notes: Follow up Bipolar and anxiety chronic stable since last visit report I am doing well I feel depression and anxiety is doing pretty well and I struggle with my weight I am tackling it with joined a gym and over all my rx is helping and keeping me stable I am having a sleep study I am tired in day and I fall asleep at work x2 and snoring and boss was concern in a meeting I fall asleep at desk, I been taking B12 and electrolytes in water, I go to bed 8-9 pm and up 5 am for gym 3 days a week other days a week 6 am and up for bathroom and back to bed and need PA for sleep study and and insurance said I do not and I have had sleep apnea before and CPAP, I been gaining weight last 60 days and new job and not working from home FT and been there 90 days, nice review from rom[employer], 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 I listen to music and pray and I go into office 4 days a week in [place], all rx doing good no s/e, I am on not feeling sad or down no hopeless or helpless and beter situation with money and will be able to reduce amount I have to pay out and I am signed up with debt resolution person, I got a raise with new job, I am not anxious or restless and only complaint drowsy and brain fog, and appetite fine, I do greens shake daily, I do have ETOH daily 2 drinks (educated on may cause fatigue and medical issues/risk), several years ago my sleep apnea was severe, concentration and focus is not bad when sleepy, other that good and able to function I make mistakes when drowsy, no abnormal movement involuntary noted or reported, Viibyrd and Haldol all rx doing good and motivation and interest good, I like ot nap and rest with my weight, no psychosis no delusions no paranoia, no marleny no SI/HI and I am still dealing with money issues from scam, I did meet another leslie online ask me for money and I told him no and ended. HX 3 major psychotic breaks since age 31, 1996, 2009, 2019 hx Auditory hallucinations ETOH 2-3 cocktails daily rx HX Abilify (weight gain and increase B/S), Haldol, Vraylar, Viibyrd. Effexor, Ambien, Cymbalta, Buspar, Lexapro Examination Category Sub-Category Detail Notes Category Not es Psychiatry Appearance: well-groomed, we ll-nourished, appears stated age, obese Orientation: awake, alert and clau ented x 3 Affect / mood: appropriate, full ra nge Speech / language: appropriate pitch/mo dulation, clear and coherent, normal rate, volume, and articulation (RVR), proper grammar used Judgement: fair Suicidal ideation: none Homicidal ideation: none Impulse control: fair Delusions: no Hallucinations: no General Examination Constitutional:: General Appearance (with 3 Vital) overweight and obese and alert, well-groomed, clean, well developed, and appears well rested. Behavior: cooperative, calm, pleasant, and eye contact Good. Musculoskeletal: Psychiatric:Thought Processes * logical, Coherent thought processes, goal-directed thought process, no thought blocking, and (normal) no approximate answering. Thought Content: No suicidal ideations and suicidal: plan and unremarkable, no ideas of reference, obsessions, NO suicidal intent, and no dangerousness: suicide risk. Psychiatric Mood: * euthymic. Gait And Stance:* sitting . Muscle Strength and tone normal strength upper extremities and in lower extremities; normal muscle tone and bulk; and no tremor, tics, or involuntary movements (dyskinesia). Psychiatric: Speech: * language is appropriate for education level and rate/ fluency intact and speech is articulate and coherent and volume is normal. Psychiatric: Associations * no loosening of associations and No clang associations. Psychiatric: Abnormal or Psychotic thoughts no hallucinations. Affect: pleasant, happy, and congruent to thought content. Psychiatric Insight * is aware of psychiatric problems and acts appropriately in social situations. 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 Orientation: oriented to person, place, situation, and time; normal attention and concentrating ability; and memory intact. Attention/Concentration: attention span sustained without motivating activities. Language: recognize objects.
--- OUTSIDE RECORDS SUMMARY | 2024-11-21 01:30 | XMS_ITS | Continuity of Care Document ---
Author Organization [facility] Address [address] [place] [address] [address] [place] [address] Phone Care Team Providers Care Amusement Park Entertainer Name Role Phone Edilberto Harley Unavailable Unavailable Procedures Procedure Date Office/outpatient Visit, Est Eye Exam & Treatment Ophthalmoscopy, Subsequent Eye Exam & Treatment Ophthalmoscopy, Subsequent Office/outpatient Visit, New Advance Directives Directive Yes / No Effective Date File Name No Information Encounters Encounter Description Practice Location Reason(s) For Visit Diagnoses Date Provider Providers Copied on Encounter Office/outpat ient Visit, Est [facility], [address] [place] [address] [address], [place], [place], [id number], [place] tel:[phone] [facility] No Information 201 0 Cricket Casanova. [address], [place], [place], [facility], [place]. tel:[phone] [facility], [address] [place] [address] [address], [place], [place], [id number], [place] tel:[phone] [facility] No Information 0 Shahzad Fraser. [address], [place], [facility], [place]. tel:[phone] Referring Provider: Evelio Love, [address], [place], [facility]. tel:[phone] [facility], [address] [place] [address] [address], [place], [place], [id number], [place] tel:[phone] [facility] No Information 0 Shahzad Fraser. [address] [facility], [place], [address], [place]. tel:[phone] Referring Provider: Edilberto Mcgrath, [address], [place], [address]. tel:[phone] Office/outpat ient Visit, [facility], [address], [place], [place], [id number], [place] tel:[phone] [facility] No Information 0 Cricket Casanova. [address], [place], [address], [place]. tel:[phone] Referring Provider: Jalny Katz OD, [address] [facility] [address], [place], [address]. tel:[phone] Family History Family Member Type Diagnosis Age At Onset No Information Payers Payer name Insurance type Covered alliance party ID Authormirza mcguire(s) [facility] Out Of State [id number] Social History Type Description Quantity Date Captured Comments Sex Female Smoking Status No Information Chief Complaint And Reason For Visit No Information Reason For Referral Reason For Referral No Information History Of Present Illness Encounter Date Complaint History Of Prese nt Illness No Information Functional Status Date Functional Assessmen t No Information Instructions Date Instruction Additional Infor mation No Information Assessments Type Assessment Date No Information Patient Care Teams Name Effective Dates (start - stop) Status Members No Information
--- OUTSIDE RECORDS SUMMARY | 2024-11-21 01:30 | XMS_ITS | Patient Health Record ---
Author Organization [facility] Address [address] [place] [address] Care Team Providers Care Group Director Name Role Phone [place] Primary Care Provider Allergies Allergen (clinical drug ingredient) Drug/Non Drug Allergy documented on EMR Reaction Allergy Type Onset Date Status Lisinopril hives Drug Allergy Active doxycycline Doxycycline hives Drug Allergy Act ana Reason For Referral No Information Medications Medication SIG (Take, Route, Frequency, Duration) Notes Start Date End Date Status LORazepam 1 MG 1 tablet at bedtime as needed Orally Once a day Active Haloperidol 5 MG 1 tablet bedtime Ora lly Once a day for 30 days Active Omeprazole 20 MG 1 capsule 30 minutes before morning meal Orally Once a day for 30 day(s) Active Valsartan-hydroCHLOROthia zide 160-12.5 MG 1 tablet Orally Once a day for 30 day(s) Active Haloperidol Decanoate 100 MG/ML 1 ml Intramuscular monthly for 30 day(s) Active busPIRone HCl 15 MG 1 tablet Orally Twic e a day for 30 days Active Benztropine Mesylate 1 MG 1 tablet at be dtime Orally Once a day for 30 days Active Social History Tobacco Use: Social History Observation Description Date Details (start date - stop date) Former Smoker NA - NA Dont use, Tobacco Use/Smoking Question Answer Notes Are you a former smoker Problems Problem Type SNOMED Code ICD Code Onset Dates Problem Status W/U Status Risk Notes Problem Bipolar 1 disorder (025386983) Bipolar 1 disorder (F31.9) Active confirmed Problem Psychosis (F29) Active confirmed Plan Of Treatment No Information Insurance Providers Payer Name Payer Address Payer Phone Subscriber Number Group Number Insured Name Patient Relationship to Insured Coverage Start Date Coverage End Date [facility] Attn Claims Department [address] [place] [address] [id number] Suha Schwartz Self - patient is the insured 0 Medications Administered Medication Instructions Date of Administration Dosage Notes Haldol decanoate 07/09/2020 100 mg Manufact by [employer]. Pt annette well. Haldol decanoate 08/03/2020 100 mg Manufact by [employer]. Pt annette well. Medical (General) History Surgical History Surgery Date(Month/Year) Right Hand carpal tunnel Left Hand carpal tunnel
--- OUTSIDE RECORDS SUMMARY | 2024-11-21 01:30 | XMS_ITS | Clinical Summary ---
Author Organization [facility] Address [address] [place] [address] Care Team Providers Care Continuity Clerk Name Role Phone Gee Branch DO Primary Care Provider [phone] Source Comments [facility],non-owned Affiliates and Associated Physician Practices is amultiple site organization consisting of ambulatory clinics and hospital sitesin [place], [place], [place] and [place]. This disclosure is being madepursuant to the Care Everywhere program and may not contain all information available regarding this patient. Last updated 18.[facility] Allergies Active Allergy Reactions Criticality Noted Date Comments Doxycycline Urticaria Medium 11/11/2018 Lisinopril Urticaria Medium 11/11/2018 Medications * Be aware that medications may not be up to date on this document. Alwaysverify current medications with the patient. VALSARTAN-HYDRO CHLOROTHIAZIDE PO Take 1 tablet by mouth once daily Active levothyroxine (SYNTHROID) 125 MCG tablet Take 125 mcg by mouth daily before breakfast Active venlafaxine XR 24hr (EFFEXOR XR) 75 MG capsule Take 37.5 mg by mouth daily with breakfast Active omeprazole (PRILOSEC) 20 MG capsule Take 20 mg by mouth daily before breakfast Active Black Cohosh-SoyIsofl av-Magnol (ESTROVEN MENOPAUSE RELIEF) CAPS Take 1 tablet by mouth once daily Active Multiple Vitamin (MULTI VITAMIN PO) Take 1 tablet by mouth once daily Active VRAYLAR 3 MG capsule TK 1 C PO QD 0 9 Active acetaZOLAMIDE ER 12hr (DIAMOX SEQUELS) 500 MG capsule Take 2 capsules by mouth 2 times daily 150 capsule 4 0 Active Active Problems Problem Noted Date Diagnosed Date Papilledema Choroidal nevus of left eye Family History Medical History Relation Name Comments Hypertension Father Cataract Mother Diabetes - Type 2 Mother Hypertension Mother Hypertension Sister Glaucoma Neg Hx Relation Name Status Comments Father Mother Sister Social History Tobacco Use Types Packs/Day Years Used Date Smoking Tobacco: Former Cigarettes Q uit: 2014 Smokeless Tobacco: Never Comments:quit 3 years ago Alcohol Use Standard Drinks/Week Comments Not Currently 0 (1 standard drink = 0.6 oz pur e alcohol) Comments No Sex and Gender Information Value Date Recorded Sex Assigned at Not on file Legal Sex 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 Gender Identity Not on file Sexual Orientation Not on file Last Filed Vital Signs Vital Sign Reading Time Taken Comments Blood Pressure 150/81 11/28/2018 11:56 AM CDT Pulse 106 11/28/2018 7:40 AM CDT Temperature 36.8 C (98.3 F) 11/28/2018 7:40 AM CDT Respiratory Rate 18 11/28/2018 7:40 AM CDT Oxygen Saturation 97% 11/28/2018 11:59 AM CDT Inhaled Oxygen Concentration - - Weight 122.9 kg (271 lb) 12/16/2019 3:35 PM CDT Height 160 cm (5' 3) 02/17/2019 12:03 PM CDT Body Mass Index 48.01 02/17/2019 12:03 PM CDT Plan of Treatment Health Maintenance Due Date Last Done Comments COLOGUARD (AGES 45-75) - COL ON CA SCREENING 1966 COLON MONITORING 1966 COLONOSCOPY - COLON CA SCREENING 1966 CT COLONOGRAPHY - COLON CA SCREENING 1966 Colorectal Cancer Screening 1966 FIT - COLON CA SCREENING 1966 FLEX SIG - COLON CA SCREENING 1966 LIPID TESTING 1966 MAMMOGRAM 1966 PAP SMEAR 1966 HIV SCREENING 1981 HEPATITIS C SCREENING 01/23/1984 DTAP/TDAP/TD VACCINES (1 - Tdap) 1985 HEPATITIS B VACCINE (1 of 3 - 19+ 3-dose series) 1985 PNEUMOCOCCAL VACCINE 50+ (1 of 1 - PCV) 01/28/2016 ZOSTER VACCINE (1 of 2) 01/28/2016 SCREENING FOR DIABETES 02/17/2019 COVID-19 VACCINE (1 - 2023-2 5 season) 2024 DEPRESSION SCREENING 06/25/2024 INFLUENZA VACCINE (Season Ended) 2025 HIB VACCINE Aged Out No longer eligi ble based on patient's age to complete this topic HPV VACCINE Aged Out No longer eligi ble based on patient's age to complete this topic MENINGOCOCCAL (Group B) VACC INE SHARED DECISION-MAKING Aged Out No longer eligibl e based on patient's age to complete this topic MENINGOCOCCAL GROUPS A/C/Y/W VACCINE Aged Out No longer eligible b ased on patient's age to complete this topic Insurance [facility] Member Subscriber Plan / Payer (Ef fective for All Dates) Name:Era Courtney Relation to Subscriber:Self Name:ERA COURTNEY Payer ID:[id number] (NAIC) Group ID:Not on file Type:Medicaid Managed Care Address: [facility] CLAIMS DEPARTMENT [place] [id number] SELF PAY NO INSURANCE Member Subscriber Plan / Payer (Ef fective for All Dates) Name:Era Courtney Member ID:Not on file Relation to Subscriber:Self Name:ERA COURTNEY Subscriber ID:Not on file Payer ID:Not on file Group ID:Not on file Type:Self Pay Address: [place], [place] [employer] Member Subscriber Plan / Payer (Ef fective for All Dates) Name:Era Courtney Relation to Subscriber:Self Name:Era Courtney Payer ID:Not on file Group ID:Not on file Type:Commercial Address: [address] Care Teams Continuity Clerk Relationship Specialty Start Date End Date Gee Branch DO [address] [place] [address] PCP - General 04/29/19
--- OUTSIDE RECORDS SUMMARY | 2024-11-21 01:31 | XMS_ITS | Data Portability ---
Author Organization [place] - [facility], Lucía Gramajo Address [address] [place] [address] Care Team Providers Care Technical Support Assistant Name Role Phone VIKI MCCAULEY Primary Care Provider ADENIKE KNUTSON Psychiatrist DHRUV MARCANO Health Evaluator [facility] Maintenance Mechanic Assessment Encounter Date Assessment Date Assessment LastModified by Organization Details LastModified Time 07/03/2024 07/03/2024 R AC successful. 1 SST, 1 LAV collected per BVoyda ROLLER CLEANER. Not available 07/03/2024 12:03:04 Plan of Treatment Reminders Order Date Submit Date Provider Last Modified By Organization Details Last Modified Time Details Appointments InPerson; Chronic Disease Mgmt 2024 10:00A M Mahi Gary DIRECTOR TRIAL Not available Not available Not available Lab lipid panel, serum 2024 025 [facility] [place], [address], 07/04/2024 08:25:18 HbA1c (hemoglob in A1c), blood 2024 025 [place] [facility] [place], [address], 07/04/2024 08:25:19 thyroid panel, serum 2024 025 [facility] [place], [address], 07/04/2024 08:25:19 CBC w/ auto diff 2024 025 [place] [facility] [address] [facility], [place], [address], 07/04/2024 08:25:17 Hepatitis C IgG Ab, qual, serum 2024 025 [place] [facility]), [address] [facility], [place], [address], 07/04/2024 08:25:20 Referral gastroent erologist referral 2024 025 [email or web address] Oleg Villegas MD, [address], [address], [place], [address], 10/31/2024 10:56:44 Procedures None recorded. Surgeries None recorded. Imaging LDCT, chest, for lung cancer screening 2024 025 [email or web address] [facility], [address], [address], [place], [address], 07/09/2024 13:28:28 Medication Orders spironola ctone 50 mg tablet 2024 025 [id number], [address] [place], [place], [id number], 08/18/2024 10:20:15 valsartan 160 mg tablet 2024 025 [id number], [address], [place], [id number], 08/18/2024 10:20:15 omeprazol e 20 mg capsule,d elayed release 2024 025 [facility], [address] [facility], [place], [place], [id number], 07/03/2024 12:04:10 Patient TargetsNo targets recorded. Patient Instructions Encounter Date Encounter Id Patient Instructions Last Modified By Organization Details Last Modified Time 07/03/2024 [id number] gastroesophageal reflux disease (GERD): care instructions Not available 07/03/2024 11:58:31 bipolar disorder : care instructions Not available 07/03/2024 14:05:03 learning about m ood disorders Not available 07/03/2024 14:05:03 body mass index: care instructions Not available 07/03/2024 11:47:57 learning about healthy weight Not available 07/03/2024 11:47:57 07/07/2024 [id number] high cholesterol : care instructions Not available 07/07/2024 12:41:56 08/18/2024 [id number] high blood press ure: care instructions Not available 08/18/2024 10:19:45 learning about h igh blood pressure Not available 08/18/2024 10:19:45 Reason for Referral Director Of Individual Giving Referral for Screening for malignant neoplasm of colon Screening Referring Physician: Mahi Gary, Family Medicine, Encounter Date: 07/03/2024 Results Created Date Observation Date Name Description Value Unit Range Abnormal Flag Note LastModifiedBy Organization Detail LastModifiedTime 07/03/1907/04/2024 CBC WITH DIFFE RENTI AL/PL ATELE T WBC 7.1 x10e3 /uL 3.4-10 .8 normal Not Available [facility] ([facility]) [address] [place], [address], 07/04/2024 08:25:17 07/03/1907/04/2024 CBC WITH DIFFE RENTI AL/PL ATELE T RBC 4.68 x10e6 /uL 3.77-5 .28 normal Not Available [facility] ([facility]) [address] [place], [address], 07/04/2024 08:25:17 07/03/19 25 07/04/2024 CBC WITH DIFFE RENTI AL/PL ATELE T hemoglobin 14.5 g/dL 11.1-1 5.9 normal Not Available [facility] ([facility]) [address] [place], [address], 07/04/2024 08:25:17 07/03/1907/04/2024 CBC WITH DIFFE RENTI AL/PL ATELE T hematocrit 43.2 % 34.0-4 6.6 normal Not Available [facility] ([facility]) [address] [place], [address], 07/04/2024 08:25:17 07/03/1907/04/2024 CBC WITH DIFFE RENTI AL/PL ATELE T MCV 92 fL 79-97 normal Not Available [facility] ([facility]) [address] [place], [address], 07/04/2024 08:25:17 07/03/1907/04/2024 CBC WITH DIFFE RENTI AL/PL ATELE T MCH 31.0 pg 26.6-3 3.0 normal Not Available [facility] ([facility]) [address] [place], [address], 07/04/2024 08:25:17 07/03/1907/04/2024 CBC WITH DIFFE RENTI AL/PL ATELE T MCHC 33.6 g/dL 31.5-3 5.7 normal Not Available [facility] ([facility]) [address] [place], [address], 07/04/2024 08:25:17 07/03/1907/04/2024 CBC WITH DIFFE RENTI AL/PL ATELE T RDW 12.7 % 11.7-1 5.4 Not Available [facility] ([facility]) [address] [place], [address], 07/04/2024 08:25:17 07/03/19 25 07/04/2024 CBC WITH DIFFE RENTI AL/PL ATELE T platelets 276 x10e3 /uL 150-45 0 normal Not Available [facility] ([facility]) [address] [facility], [place], [address], 07/04/2024 08:25:17 07/03/1907/04/2024 CBC WITH DIFFE RENTI AL/PL ATELE T neutrophils 58 % not estab. normal Not Available [facility] ([facility]) [address] [facility], [place], [address], 07/04/2024 08:25:17 07/03/1907/04/2024 CBC WITH DIFFE RENTI AL/PL ATELE T lymphs 29 % not estab. normal Not Available [facility] ([facility]) [address] [facility], [place], [address], 07/04/2024 08:25:17 07/03/19 25 07/04/2024 CBC WITH DIFFE RENTI AL/PL ATELE T monocytes 11 % not estab. normal Not Available [facility] ([facility]) [address] [facility], [place], [address], 07/04/2024 08:25:17 07/03/1907/04/2024 CBC WITH DIFFE RENTI AL/PL ATELE T eos 0 % not estab. normal Not Available [facility] ([facility]) [address] [facility], [place], [address], 07/04/2024 08:25:17 07/03/1907/04/2024 CBC WITH DIFFE RENTI AL/PL ATELE T basos 1 % not estab. normal Not Available [facility] ([facility]) [address] [facility], [place], [address], 07/04/2024 08:25:17 07/03/19 25 07/04/2024 CBC WITH DIFFE RENTI AL/PL ATELE T immature cells DIRECTOR TRIAL Not Available [facility]) [address] [facility], [place], [address], 07/04/2024 08:25:17 07/03/1907/04/2024 CBC WITH DIFFE RENTI AL/PL ATELE T neutrophils (absolute) 4.1 x10e3 /uL 1.4-7. 0 normal Not Available [facility] ([facility]) [address] [facility], [place], [address], 07/04/2024 08:25:17 07/03/1907/04/2024 CBC WITH DIFFE RENTI AL/PL ATELE T lymphs (absolute) 2.1 x10e3 /uL 0.7-3. 1 normal Not Available [facility] ([facility]) [address] [place], [address], 07/04/2024 08:25:17 07/03/1907/04/2024 CBC WITH DIFFE RENTI AL/PL ATELE T monocytes(ab solute) 0.7 x10e3 /uL 0.1-0. 9 normal Not Available [facility] ([facility]) [address] [facility], [place], [address], 07/04/2024 08:25:17 07/03/19 25 07/04/2024 CBC WITH DIFFE RENTI AL/PL ATELE T eos (absolute) 0.0 x10e3 /uL 0.0-0. 4 normal Not Available [facility] ([facility]) [address] [place], [address], 07/04/2024 08:25:17 07/03/1907/04/2024 CBC WITH DIFFE RENTI AL/PL ATELE T baso (absolute) 0.0 x10e3 /uL 0.0-0. 2 normal Not Available [facility] ([facility]) [address] [place], [address], 07/04/2024 08:25:17 07/03/1907/04/2024 CBC WITH DIFFE RENTI AL/PL ATELE T immature granulocytes 1 % not estab. Not Available [facility] ([facility]) [address] [facility], [place], [address], 07/04/2024 08:25:17 07/03/1907/04/2024 CBC WITH DIFFE RENTI AL/PL ATELE T immature grans (abs) 0.1 x10e3 /uL 0.0-0. 1 Not Available [facility] ([facility]) [address] [facility], [place], [address], 07/04/2024 08:25:17 07/03/19 25 07/04/2024 CBC WITH DIFFE RENTI AL/PL ATELE T NRBC DIRECTOR TRIAL Not Available [facility] ([facility]) [address] [facility], [place], [address], 07/04/2024 08:25:17 07/03/19 25 07/04/2024 CBC WITH DIFFE RENTI AL/PL ATELE T hematology comments: DIRECTOR TRIAL Not Available [facility] ([facility]) [address] [facility], [place], [address], 07/04/2024 08:25:17 07/03/1907/04/2024 COMP. METAB OLIC PANEL (14) glucose 98 mg/dL 70-99 normal Not Available [facility] ([facility]) [address] [facility], [place], [address], 07/04/2024 08:25:18 07/03/19 25 07/04/2024 COMP. METAB OLIC PANEL (14) BUN 11 mg/dL 6-24 normal Not Available [facility] ([facility]) [address] [facility] [place], [address], 07/04/2024 08:25:18 07/03/19 25 07/04/2024 COMP. METAB OLIC PANEL (14) creatinine 0.70 mg/dL 0.57-1 .00 normal Not Available [facility] ([facility]) [address] [facility], [place], [address], 07/04/2024 08:25:18 07/03/19 25 07/04/2024 COMP. METAB OLIC PANEL (14) eGFR 100 mL/mi n/1.7 3 >59 normal Not Available [facility] ([facility]) [address] [facility], [place], [address], 07/04/2024 08:25:18 07/03/19 25 07/04/2024 COMP. METAB OLIC PANEL (14) BUN/creatini ne ratio 16 9-23 normal Not Available [facility] ([facility]) [address] [facility], [place], [address], 07/04/2024 08:25:18 07/03/19 25 07/04/2024 COMP. METAB OLIC PANEL (14) sodium 138 mmol/ L 134-14 4 normal Not Available [facility] ([facility]) [address] [facility], [place], [address], 07/04/2024 08:25:18 07/03/19 25 07/04/2024 COMP. METAB OLIC PANEL (14) potassium 4.3 mmol/ L 3.5-5. 2 normal Not Available [facility] ([facility]) [address] [facility], [place], [address], 07/04/2024 08:25:18 07/03/19 25 07/04/2024 COMP. METAB OLIC PANEL (14) chloride 96 mmol/ L 96-106 normal Not Available [facility] ([facility]) [address] [facility], [place], [address], 07/04/2024 08:25:18 07/03/19 25 07/04/2024 COMP. METAB OLIC PANEL (14) carbon dioxide, total 26 mmol/ L 20-29 normal Not Available [facility] ([facility]) [address] [facility], [place], [address], 07/04/2024 08:25:18 07/03/19 25 07/04/2024 COMP. METAB OLIC PANEL (14) calcium 9.5 mg/dL 8.7-10 .2 normal Not Available [facility] ([facility]) [address] [place], [address], 07/04/2024 08:25:18 07/03/19 25 07/04/2024 COMP. METAB OLIC PANEL (14) protein, total 6.9 g/dL 6.0-8. 5 normal Not Available [facility] ([facility]) [address] [place], [address], 07/04/2024 08:25:18 07/03/19 25 07/04/2024 COMP. METAB OLIC PANEL (14) albumin 4.4 g/dL 3.8-4. 9 normal Not Available [facility] ([facility]) [address] [place], [address], 07/04/2024 08:25:18 07/03/19 25 07/04/2024 COMP. METAB OLIC PANEL (14) globulin, total 2.5 g/dL 1.5-4. 5 Not Available [facility] ([facility]) [address] [place], [address], 07/04/2024 08:25:18 07/03/19 25 07/04/2024 COMP. METAB OLIC PANEL (14) bilirubin, total 0.4 mg/dL 0.0-1. 2 normal Not Available [facility] ([facility]) [address] [place], [address], 07/04/2024 08:25:18 07/03/19 25 07/04/2024 COMP. METAB OLIC PANEL (14) alkaline phosphatase 74 IU/L 44-121 normal Not Available [facility] ([facility] [address] [place], [address], 07/04/2024 08:25:18 07/03/19 25 07/04/2024 COMP. METAB OLIC PANEL (14) AST (SGOT) 24 IU/L 0-40 normal Not Available [facility] ([facility]) [address] [facility] [place], [address], 07/04/2024 08:25:18 07/03/19 25 07/04/2024 COMP. METAB OLIC PANEL (14) ALT (SGPT) 37 IU/L 0-32 above high normal Not Available [facility] ([facility]) [address] [facility] [place], [address], 07/04/2024 08:25:18 07/03/19 25 07/04/2024 LIPID PANEL W/ CHOL/ HDL RATIO cholesterol, total 203 mg/dL 100-19 9 above high normal Not Available [facility] ([facility]) [address] [facility] [place], [address], 07/04/2024 08:25:18 07/03/19 25 07/04/2024 LIPID PANEL W/ CHOL/ HDL RATIO triglyceride s 104 mg/dL 0-149 normal Not Available [facility] ([facility]) [address] [facility] [place], [address], 07/04/2024 08:25:18 07/03/19 25 07/04/2024 LIPID PANEL W/ CHOL/ HDL RATIO HDL cholesterol 59 mg/dL >39 normal Not Available [facility] ([facility] [address] [place], [address], 07/04/2024 08:25:18 07/03/19 25 07/04/2024 LIPID PANEL W/ CHOL/ HDL RATIO VLDL cholesterol artur 19 mg/dL 5-40 Not Available [facility] ([facility]) [address] [place], [address], 07/04/2024 08:25:18 07/03/19 25 07/04/2024 LIPID PANEL W/ CHOL/ HDL RATIO LDL chol calc ([facility]) 125 mg/dL 0-99 above high normal Not Available [facility] ([facility]) [address] [place], [address], 07/04/2024 08:25:18 07/03/1907/04/2024 LIPID PANEL W/ CHOL/ HDL RATIO LDL calc comment: DIRECTOR TRIAL Not Available [facility] ([facility]) [address] [place], [address], 07/04/2024 08:25:18 07/03/19 25 07/04/2024 LIPID PANEL W/ CHOL/ HDL RATIO T. chol/HDL ratio 3.4 ratio 0.0-4. 4 T. Chol/ HDL Ratio Men Women 1/2 Avg.R isk 3.4 3.3 Avg.R isk 5.0 4.4 2X Avg.R isk 9.6 7.1 3X Avg.R isk 23.4 11.0 Not Available [facility] ([facility]) [address] [place], [address], 07/04/2024 08:25:18 07/03/19 25 07/04/2024 THYRO ID PANEL WITH TSH TSH 2.890 uIU/m L 0.450- 4.500 normal Not Available [facility] ([facility]) [address] [place], [address], 07/04/2024 08:25:19 07/03/19 25 07/04/2024 THYRO ID PANEL WITH TSH thyroxine (T4) 7.5 ug/dL 4.5-12 .0 normal Not Available [facility] ([facility]) [address] [place], [address], 07/04/2024 08:25:19 07/03/19 25 07/04/2024 THYRO ID PANEL WITH TSH T3 uptake 24 % 24-39 normal Not Available [facility] ([facility]) [address] [place], [address], 07/04/2024 08:25:19 07/03/19 25 07/04/2024 THYRO ID PANEL WITH TSH free thyroxine index 1.8 1.2-4. 9 normal Not Available [facility] ([facility]) [address] [place], [address], 07/04/2024 08:25:19 07/03/19 25 07/04/2024 HGB A1C WITH EAG ESTIM ATION hemoglobin A1C 6.1 % 4.8-5. 6 above high normal Predi abete s: 5.7 - 6.4 Diabe kinga: >6.4 Glyce elie contr ol for adult s with diabe kinga: <7.0 Not Available [facility] ([facility]) [address] [place], [address], 07/04/2024 08:25:19 07/03/1907/04/2024 HGB A1C WITH EAG ESTIM ATION estim. avg glu (EAG) 128 mg/dL Not Available [facility] ([facility]) [address] [facility], [place], [address], 07/04/2024 08:25:19 07/03/1907/04/2024 HCV ANTIB YFN RFX TO QUANT PCR HCV Ab Non Reacti ve non reacti ve Not Available [facility] ([facility]) [address] [facility], [place], [address], 07/04/2024 08:25:20 07/03/1907/04/2024 HCV ANTIB YFN RFX TO QUANT PCR interpretati on: Commen t Not infec johana with HCV unles s early or acute infec tion is suspe cted (whic h may be delay ed in an immun ocomp romis ed indiv idual ), or other evide nce exist s to indic ate HCV infec tion. Not Available [facility] ([facility]) [address] [facility], [place], [address], 07/04/2024 08:25:20 Result Notes None recorded. Problems Name Problem SNOMED Code Status Onset Date Resolution Date Notes Provider Name and Address Organization Details Recorded Time Hypertensive disorder 13620993 Active 2024 Mahi Voyda DIRECTOR TRIAL [address], [place], [address], [place] [facility] 5 11:14:24 Prediabetes 403674522 Active 2024 Mahi Voyda DIRECTOR TRIAL [address], [place], [address], [place] [facility] 5 11:14:30 Anxiety 07633779 Active 2024 Mahi Voyda DIRECTOR TRIAL [address], [place], [address], [place] [facility] 5 11:14:38 Depressive disorder 20776963 Active 2024 Mahi Voyda DIRECTOR TRIAL [address], [place], [address], [place] [facility] 5 11:14:44 Gastroesophage al reflux disease 724942177 Active 2024 Mahi Martina DIRECTOR TRIAL [address], [place], [address], [place] [facility] 5 11:59:00 Hyperlipidemia 63647752 Active 2024 Mahi Martina DIRECTOR TRIAL [address], [place], [address], [place] [facility] 5 12:39:21 Female hirsutism 42505025 Active 2024 Mahi [employer]elishaa DIRECTOR TRIAL [address], [place], [address], [place] [facility] 5 10:16:50 Essential hypertension 04143030 Active 2024 Mahi Voyda DIRECTOR TRIAL [address], [place], [address], [place] [facility] 5 10:17:01 Problem Notes None recorded. Procedures Surgical History Date Name Laterality Status Provider Name and Address Organization Details Recorded Time 4 Date of Last Mammogram completed Mahi [employer]leishaa DIRECTOR TRIAL [address], [place], [address], [place] [facility] 07/03/2024 14:15:46 6 [facility] bilateral fall[facility] tubes [facility] [address], [place], [address], [facility] 07/03/2024 12:07:57 Carpal tunnel surgery completed Marion Carbajal [facility] 07/03/2024 11:08:04 [facility] [address] [place], [address], [facility] 07/03/2024 14:16:42 Imaging Results None recorded. Procedure Notes None recorded. Medical Equipment None Reported. Allergies Allergen ID Allergen Name Allergen Category Reaction Reaction Severity Criticality Documentation Date Start Date Code Code System Note Provider Name and Address Organization Details Recorded Time 999291 lisinopri l medicatio n hives severe Not available 07/03/2024 17801 [facility] [address], [place], [address], [facility] 14:10:51 248831 doxycycli ne Not available hives severe Not available 07/03/2024 3640 [facility] [address], [place], [place], [address] [place] [address] 4, [facility] 14:10:51 Medications Name Sig Start Date Stop Date Status Note LastModified by Organization Details LastModified Time cyclobenzap rine 10 mg tablet TAKE 1 TABLET BY MOUTH AT BEDTIME NEEDED FOR MUSCLE SPASM 07/03 completed Not Available Not Available Not Available haloperidol 5 mg tablet TAKE 1 TABLET BY MOUTH DAILY active Not Available Not Available No t Available benztropine 1 mg tablet TAKE 1 TABLET BY MOUTH DAILY active Not Available Not Available No t Available omeprazole 20 mg capsule,del ayed release Take 1 capsule every day by oral route for 100 days, for GERD/hear tburn. 2024 active Not Available Not Available Not Avai lable cefdinir 300 mg capsule TAKE 1 CAPSULE BY MOUTH EVERY 12 HOURS FOR 10 DAYS 07/03 completed Not Available Not Available Not Available spironolact one 50 mg tablet Take 1 tablet every day by oral route for 90 days, for abnormal hair growth and edema. 2024 active Not Available Not Available Not Avai lable valsartan 160 mg tablet Take 1 tablet every day by oral route for 90 days. 2024 active Not Available Not Available Not Avai lable vilazodone 40 mg tablet TAKE 1 TABLET BY MOUTH DAILY WITH FOOD active Not Available Not Available No t Available Vitals Date Recorded Body height Body mass index (BMI) Body weight Body temperature Heart rate Respiratory rate Systolic blood pressure Diastolic blood pressure Provider Name and Address Organization Details Last Updated DateTime 161.92 cm 55.1 kg/m2 192285. 53 g 98.7 [degF] 87 /min 12 /min 122 mm[Hg] 73 mm[Hg] [facility] Carbajal [place] [facility] 11:00:26 Date Recorded Body height Provider Name an d Address Organization Details Last Updated DateTime 07/07/2024 161.92 cm Mahi [employer]elisha [address], [place], [address], [facility] 07/07/2024 12:36:18 Date Recorded Body height Provider Name an d Address Organization Details Last Updated DateTime 08/18/2024 161.92 cm Mahi [employer] [address], [place], [address], [facility] 08/18/2024 10:11:00 Social History Question Answer Notes LastModified by Organizat ion Details LastModified Time Tobacco Smoking Status [facility]/2024 11:05:41 What Is Your Level Of Caffeine Consumption? Moderate Information not available 07/03/2024 How Much Tobacco Do You Chew? None Information not available 07/03/2024 What Is The Highest Grade Or Level Of School You Have Completed Or The Highest Degree You Have Received? GA24193-4 [email or web address] Information not available 07/03/2024 Cigar Smoking No Information not available 07/03/2024 Lives With Alone [email or web address] Information no t available 07/03/2024 Have You Ever Served In The ? No Information not available 07/03/2024 What Was The Date Of Your Most Recent Tobacco Screening? 06/27/2024 Information not available 07/03/2024 What Is Your Current Pack Years? 10-19packye ars Intermittnet Use Years; 1ppd At Most Information not available 07/03/2024 What Is Your Relationship Status? Single Information not available 07/03/2024 How Much Tobacco Do You Smoke? No Information not available 07/03/2024 Sex: Unknown Functional Status Question Answer Note LastModified by Organizat ion Details LastModified Time How many times per week do you consume alcohol? 5-7 times per week Information not available 07/03/2024 Do you use any illicit or recreational drugs? No Information not available 07/03/2024 Do you or have you ever used any other forms of tobacco or nicotine? No Information not available 07/03/2024 What is your level of alcohol consumption? Moderate Information not available 07/03/2024 Are you currently employed? Yes [email or web address] Information not available 07/03/2024 What is your occupation? [employer] Information not available 07/03/2024 Mental Status None recorded. Family History Relationship Description Onset Age of this Age Resolved Age Notes LastModified by Organization Details LastModified Time Mother Type 2 diabetes mellitus Not available 2024 14:11:08 Mother Hypertensive disorder Not available 2024 11:27:37 Sister Hypertensive disorder Monique Not available 2024 11:28:08 Sister Hypertensive disorder Yvette Not available 2024 14:11:08 Sister Prediabetes Lise Not availab le 07/03/2024 14:11:08 Father Hypertensive disorder Not available 2024 11:28:26 Father Leukemia 86 86 18 days betwee n dx and passin g; myobla stic leukem ia Not available 07/03/2024 11:29:15 Medical History Condition Response Diabetes Type II Bipolar Y Hypertension (High Blood Pressure) Y Anxiety Y Obstructive Sleep Apnea Y Depression Y Shingles (HZ) Y Gynecological History Statement/Question Response Abnormal Pap Y Date of Last Colonoscopy Date of Last Mammogram 06/07/2024 Most Recent Bone Density Sexually Active? N Menses Monthly N STIs/STDs N HPV Vaccine N Date of Last Pap Smear Current Control Method Tubal Ligat ion Obstetrics History GPAL:G 0 P 0 0 0 0 Past Encounters Encounter ID Performer Location Encounter Start Date Encounter Closed Date Diagnosis/Indication Diagnosis SNOMED-CT Code Diagnosis ICD10 Code Diagnosis Note [id number] Mahi Gary PIPER [facility] [address] [place] [address] 07/03/2024 10:46:00 07/03/2024 14:18:35 Adult health examination 954885591 Z00.01 PCP: Viki Mccauley DIRECTOR TRIAL. Unsure if she'll continue seeing him or come here at this time.Speci alists:1) Dr. Adenike Knutson/psyc hiatrist manages bipolar, anxiety, and depression .2) Dr. Dhruv Marcano/pulm onologist manages HEAVENLY. BiPAP started May 2024.3) PATRON ATTENDANT unknown at [facility]. Last labs: last 01/2024, due 07/2024. Monitoring for diabetes.V accines: Discussed TDaP, flu shot, Shingrix, and pneumococc al vaccines. She declines all.Last pap/WWE: [facility], [place], fall 2023 WNL per pt. She prefers to continue care for women's health with PATRON ATTENDANT.Last mammo: 06/07/2024 , WNL per pt. She prefers to continue care for women's health with PATRON ATTENDANT.Last CRC screening: never colonoscop y, last Cologuard at 52 years old was WNL. Prefers colonoscop y, ordered.La st LDCT: never. Agreeable, ordered. Prediabetes [id number] R7 3.03 Last 3 per pt report were 6.1, 5.7, 6.4%.Needs a1c 6.5% or higher for insurance to cover it.Wants Monjourno. Previously tried Saxsenda, didn't like it but doesn't remember why. Ex-smoker [id number] Z87.89 1 Quit smoking 2015.Was at most 1 ppd smoker.Sta rted in early teens, but had gaps where she would not smoke for 1+ years.Agre eable to LDCT, orders placed. Screening procedure 2012 5006 Z13.9 Body mass index 40+ - severely obese [id number] Z68.43 Current BMI 55.Pt requests Mon Thyroid di sorder screening [id number] Z13.29 Pt reports hx needing thyroid medicine but no longer needing it.Will check thyroid panel and TSH and adjust POC as necessary. Pt verbalised understand ing and agreement with above POC. All questions and concerns were addressed. Screening for malignant neoplasm of colon [id number] Z12.11 Pt reports last CRC screening was Cologuard when she was 52 years old, approx 7 years ago. It was normal per her report. She is overdue for repeat screening, prefers colonoscop y but states prior PCP said she needed to wait 10 years. Educated pt Cologuard, if normal result, is good for 3 years (given no change in history or FHx) but then repeat testing is needed. Obstructiv e sleep apnea of adult [id number] 103 G47.33 Pt treated for HEAVENLY per pulmonolog ist with BiPap 05/2024.Sh e is feeling better already, no longer falling asleep during meetings or feeling excessivel y tired.She will continue care with specialist for this. Gastroesop hageal reflux disease 601352309 K21.9 Pt doing well w/omeprazo le 20mg QD.She requests RF.Order placed, med dispensed. F/U 6 months or sooner PRN. Bipolar disorder [id number] 4 F31.9 Pt has medication and condition management per psychiatry , Dr. Adenike Knutson.She will continue all mental health care with specialist . Mixed anxi ety and depressive disorder 138983578 F41.8 CHRISTIANE/PHQ assessment s not performed today.Pt has medication and condition management per psychiatry , Dr. Adenike Knutson.She will continue all mental health care with specialist . [id number] Mahi Gary [facility] [address] [place] [address] 07/07/2024 12:35:52 07/07/2024 13:09:13 Hyperlipidemia 15058554 E78.5 06/2024 lipid panel indicates slightly elevated levels (TC 203, TG 104, HDL 59, LDL 125!). Pt reports 01/2024 lipid panel shows LDL 180s. We do not have this record.Add itionally results from 06/2024 indicate a1c (6.1).ASCV D risk current 10-year at 3.1%, optimal at 1.9%, and lifetime at 39%.Pt recently started BiPap and is working on nutritiona l adjustment s with goal of weight loss.She wishes to repeat labs 6 months.F/U scheduled 01/01/25. Prediabetes 078573871 R7 3.03 06/2024 a1c at 6.1.Pt reports this is consistent with a1c drawn 01/2024 at 6.1%, and previously at 5.7%.Pt wants Mounjaro, however her a1c needs to be 6.5% or higher for insurance to cover it.Nat maier tried Saxenda, didn't like it but doesn't remember why.She wishes to repeat labs 6 months.F/U scheduled 01/01/25. [id number] Mahi Gary [facility] [address] [place] [address] 07/14/2024 10:22:12 07/14/2024 15:42:21 Nausea, vomiting and diarrhea 6398388 R11.2 Per pt report, ssx resolved x1 day ago.She is much better overall and will return to work tomorrow.E ncouraged hydration, bland meals, and plenty of rest.She will RTC for any further concerns. [id number] Mahi Gary NP [facility] [address] [place] [address] 08/18/2024 10:08:33 09/02/2024 13:24:46 Female hirsutism [id number] L68.0 Pt reportedly takes spironolac tone daily for hirsutism and BLE edema.She reports ssx have been controlled nicely with current regimen.Pt requests RF to [facility]. Rx ordered.F/ U scheduled 01/01/25, anticipate lab draw. Essential hypertension 58587894 I10 Pt does not regularly check BP at home, has no home readings.I n clinic 07/03/24 BP was at goal.She reportedly feels well overall.Wi ll order RF to [employer] as pt requests.F /U scheduled 01/01/25, anticipate lab draw. Health Concerns Section Related Observation LastModified by Organization Detai ls LastModified Time None Recorded Concern Status LastModified by Organization Details LastModified Time None Recorded Advance Directives Directive None Recorded Payers Insurance Date Sequence Insurance Name Policy Number Policy Tesfaye Covered Member ID Tesfaye Member ID Guarantor Name 05/27/2024 1 *SELF PAY* UNKNOWN Suha Walker NO_INS_NUMB ER_AVAILABL E Suha Walker 05/27/2024 1 *SELF PAY* UNKNOWN Suha Walker NO_INS_NUMB ER_AVAILABL E Suha Walker 09/02/2024 1 [employer] [facility] [id number] Suha Walker [id number] Suha Walker 05/26/2024 1 *SELF PAY* UNKNOWN Suha Walker NO_INS_NUMB ER_AVAILABL E Suha Walker 05/27/2024 1 *SELF PAY* UNKNOWN Suha Walker NO_INS_NUMB ER_AVAILABL E Suha Walker 05/27/2024 1 *SELF PAY* UNKNOWN Suha Walker NO_INS_NUMB ER_AVAILABL E Suha Walker 07/03/2024 1 *SELF PAY* UNKNOWN Suha Walker NO_INS_NUMB ER_AVAILABL E Suha Walker 05/27/2024 1 *SELF PAY* UNKNOWN Suha Walker NO_INS_NUMB ER_AVAILABL E Suha Walker Notes Date Note Type Note Provider Name and Address Organization Details Recorded Time 07/03/2024 text/html Pt presents to establish care and for CPE and C/O weight loss need. PCP: Viki Mccauley DIRECTOR TRIAL. Unsure if she'll continue seeing him or come here at this time.Specialists:1) Dr. Adenike Knutson/psychiatrist manages bipolar, anxiety, and depression.2) Dr. Dhruv Marcano/dragger manages HEAVENLY. BiPAP started May 2024.3) [facility] ATTENDANT unknown at [facility]. Last labs: last 01/2024, due 07/2024. Monitoring for diabetes.Vaccines: unknown TDaP, declines flu shot, never had Shingrix, never had pneumo vax.Last pap/WWE: [place], [place], fall 2023 WNL per pt.Last mammo: 06/07/2024, WNL per pt.Last CRC screening: never colonoscopy, last Cologuard at 52 years old was WNL.Last LDCT: never. weight is biggest issue affecting every part of life.gaining - [employer] 08/2023 279, today 318.Reports some stress and new job in October 2023 but this is going well.Now tx for HEAVENLY and feeling better in last couple weeks. Mahi Gary DIRECT[facility]AL [address], [place], [address], [place] [facility] 07/03/2024 17:41:52 07/07/2024 text/html Pt presents VIA PHONE for F/U LAB RESULTS. Call placed at: [phone].Call ended at: [phone].This encounter was undertaken via [telephone]. I introduced myself as GEORGE Woodson, and greeted the patient by name and then verified their location. We reviewed the appropriateness of virtual care for this visit and the limitations of telemedicine. All issues below were discussed and addressed but no physical exam was performed except as documented. If it was felt the patient should be evaluated [id number], they were directed to the clinic for care either now or at a subsequent visit as indicated below. Verbal consent for telemedicine visit obtained from the patient. Mahi Gary DIRECT[facility]AL [address], [place], [address], [place] [facility] 07/07/2024 12:42:17 07/14/2024 text/html Pt presents VIA PHONE for F/U LAB RESULTS. C/O vomiting through 03/11 night, then sporadic diarrhea through Sunday07/13/24.Diarrhea ended early yesterday. Feeling much better overall since last night.No work today d/t holiday, no work notes needed. Call placed at: [phone] ended at: 0928.This encounter was undertaken via [telephone]. I introduced myself as GEORGE Woodson, and greeted the patient by name and then verified their location. We reviewed the appropriateness of virtual care for this visit and the limitations of telemedicine. All issues below were discussed and addressed but no physical exam was performed except as documented. If it was felt the patient should be evaluated [id number], they were directed to the clinic for care either now or at a subsequent visit as indicated below. Verbal consent for telemedicine visit obtained from the patient. Mahi Gary DIRECTOR TRIAL [address], [place], [address], [place] - [facility] 07/14/2024 15:21:16 08/18/2024 text/html Pt presents VIA PHONE for REFILL REQUEST. Pt requests RF valsartan and spironolactone. She takes valsartan for HTN and spironolactone for hirsutismand edema. Pt wishes us to assume care of these conditions as she no longer wants to see former PCP Mark. She requests RF at [facility]. Pt was [facility] in [facility] here 07/03/24 and had labs drawn. Call placed at: [phone]. Call ended at: 09. This encounter was undertaken via [telephone]. I introduced myself as GEORGE Woodson, and greeted the patient by name and then verified their location. We reviewed the appropriateness of virtual care for this visit and the limitations of telemedicine. All issues below were discussed and addressed but no physical exam was performed except as documented. If it was felt the patient should be evaluated [id number], they were directed to the clinic for care either now or at a subsequent visit as indicated below. Verbal consent for telemedicine visit obtained from the patient. Mahi Gary DIRECTOR TRIAL [address], [place], [address], [place] - [facility] 08/18/2024 10:20:53 OBGyn Episode No OBEpisode recorded.
--- OUTSIDE RECORDS SUMMARY | 2024-11-21 01:32 | XMS_ITS | Patient Health Record ---
Author Organization [facility] [employer] [facility] Address [address] [place] [address] Care Team Providers Care Paper Handler Name Role Phone Gee Branch DO Primary Care Provider Adenike Bryant Unavailable [phone] Marissa Bangura Unavailable [phone] Allergies Allergen (clinical drug ingredient) Drug/Non Drug Allergy documented on EMR Reaction Allergy Type Onset Date Status Lisinopril Unknown Drug Allergy 09/27/2023 Activ e doxycycline Doxycycline Unknown Drug Allergy 09/27/2023 Ac tive Reason For Referral No Information Medications Medication SIG (Take, Route, Frequency, Duration) Notes Start Date End Date Status Benztropine Mesylate 1 MG 1 tablet Orally Once a day for 30 days Active Viibryd 40 MG 1 tablet with food Oral Once a day for 30 days Active acetaZOLAMIDE ER 500 MG Oral 09/27/2023 Active Valsartan 160 MG Oral 09/27/2023 Ac tive Haloperidol 5 MG 1 tablet Orally Once a day for 30 days Active Saxenda 18 MG/3ML Subcutaneous 09/27/2023 Not-Taking BD ULTRA-FINE PEN NEEDLE 32 gauge x MISCELLANEOUS *Reorder from [employer] for eRx and Interaction Alerts* 09/27/2023 Active Spironolactone 50 MG Oral 09/27/2023 Active Omeprazole 20 MG Oral 09/27/2023 Ac tive Immunizations Vaccine Route Administration Date Status Comme nts Moderna Covid-19 Vaccine 1st dose Unknown 09/08/2020 Ad ministered Moderna Covid-19 Vaccine 1st dose Unknown 10/06/2020 Ad ministered Social History Sex Assigned At : Social History Observation Description Sex Assigned At Female Problems Problem Type SNOMED Code ICD Code Onset Dates Problem Status W/U Status Risk Notes Problem Morbid obesity (disorder) (462936411) Morbid (severe) obesity due to excess calories (E66.01) 02/11/20 Active confirmed Problem Obesity (656560348) Obesity, unspecified (E66.9) 02/11/20 Active confirmed Problem Bipolar affective disorder, currently depressed, mild (193179715) Bipolar disorder, current episode depressed, mild (F31.31) 08/14/19 Active confirmed Problem Bipolar I disorder (274122131) Bipolar disorder, in partial remission, most recent episode hypomanic (F31.71) 11/12/19 Active confirmed Problem Manic bipolar I disorder in full remission (61369245) Bipolar disorder, in full remission, most recent episode manic (F31.74) Active confirmed Problem Generalized anxiety disorder (99708982) Generalized anxiety disorder (F41.1) 11/12/19 Active confirmed Problem Disorder of musculoskeletal system (810944) Other symptoms and signs involving the musculoskeletal system (R29.898) 08/14/19 Active confirmed Problem Long-term current use of drug therapy (136974925) Other 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 treater 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 (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) drug therapy (Z79.899) 08/14/19 24 Active confirmed Encounters Encounter Location Date Provider Diagnosis [facility] [employer] [facility] [address] [facility] [address] [place] [address] 01/11/2024 Marissa Amaro Generalized anxiety disorder F41.1 and Bipolar disorder, in full remission, most recent episode manic F31.74 [facility] [employer] [facility] [address] [facility] [address] [place] [address] 01/23/2024 Marissa Amaro Generalized anxiety disorder F41.1 and Bipolar disorder, in full remission, most recent episode manic F31.74 [facility] [employer] [facility] [address] [facility] [address] [place] [address] 02/06/2024 Marissa Amaro Bipolar disorder, in full remission, most recent episode manic F31.74 and Generalized anxiety disorder F41.1 [facility] [employer] [facility] [address] [place] [address] 02/22/2024 Adenike Knutson Bipolar disorder, current episode depressed, mild F31.31 ; Generalized anxiety disorder F41.1 ; Other symptoms and signs involving the musculoskeletal system R29.898 ; Other termite treater helper (current) drug therapy Z79.899 and Morbid (severe) obesity due to excess calories E66.01 [place] [address] [facility] [address] [place] [address] 03/21/2024 Marissa Amaro Generalized anxiety disorder F41.1 and Bipolar disorder, in full remission, most recent episode manic F31.74 [place] [address] [facility] [address] [place] [address] 04/04/2024 Marissa Lynn Prem Bipolar disorder, in partial remission, most recent episode hypomanic F31.71 and Generalized anxiety disorder F41.1 [place] [address] [facility] [address] [place] [address] 05/09/2024 Marissa Lynn Prem Bipolar disorder, in partial remission, most recent episode hypomanic F31.71 and Generalized anxiety disorder F41.1 [place] [address] [facility] [address] [place] [address] 06/27/2024 Adenike Knutson Bipolar disorder, in partial remission, most recent episode hypomanic F31.71 ; Generalized anxiety disorder F41.1 ; Bipolar disorder, current episode depressed, mild F31.31 ; Other symptoms and signs involving the musculoskeletal system R29.898 ; Other termite treater helper (current) drug therapy Z79.899 and Morbid (severe) obesity due to excess calories E66.01 [place] [address] [facility] [address] [place] [address] 09/26/2024 Adenike Knutson Bipolar disorder, in partial remission, most recent episode hypomanic F31.71 ; Generalized anxiety disorder F41.1 ; Bipolar disorder, current episode depressed, mild F31.31 ; Other symptoms and signs involving the musculoskeletal system R29.898 ; Other termite treater helper (current) drug therapy Z79.899 and Morbid (severe) obesity due to excess calories E66.01 [place] [address] [facility] [address] [place] [address] 12/07/2023 Adenike Thermaliha [place] [address] [facility] [address] [place] [address] 02/04/2024 Adenike Santanay [facility] [employer] [facility] [address] [place] [address] 02/26/2024 Adenike Zenia Bipolar disorder, current episode depressed, mild F31.31 [facility] [address] [place] [address] 03/07/2024 [facility] [address] [place] [address] 09/19/2024 Adenike Zenia Assessments Encounter Date Diagnosis (ICD Code) Assessment Notes Treatment Notes Treatment Clinical Notes Section Notes 01/11/2024 Bipolar disorder, in full remission, most recent episode manic (ICD-10 - F31.74) Assessment completed 09/14/21 and copied from Marimar Era is a 56 year old female who presented for counseling following a bipolar episode and hospitalization in May 2020. She had been seeing a counselor and psychiatrist at [facility] and transferred to [facility]. 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 Era is x2 and she has no children. She has a bachelor's degree in accounting. Era denies SI. She has recently lost 80 pounds though a healthy diet and excercise. She uses ETOH on occasions and denies illegal drug use and mj. Quit smoking cigarettes when she turned 51 years old. Hx of 4 bipolar with psychosis episodes which all resulted from a loss of a relationship which negatively effected financial instability and consequently required a medication change and then psychosis. Current CHRISTIANE is 3 and current PHQ9 is 3. Would like to focus on relapse prevention and rebuilding her life. Experiencing symptoms of anxiety/depression as she fears a relapse. 01/11/2024 Generalized anxiety disorder (ICD-10 - F41.1) Assessment completed 09/14/21 and copied from Marimar Era is a 56 year old female who presented for counseling following a bipolar episode and hospitalization in May 2020. She had been seeing a counselor and psychiatrist at [facility] and transferred to [facility]. 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 Era is x2 and she has no children. She has a bachelor's degree in accounting. Era denies SI. She has recently lost 80 pounds though a healthy diet and excercise. She uses ETOH on occasions and denies illegal drug use and mj. Quit smoking cigarettes when she turned 51 years old. Hx of 4 bipolar with psychosis episodes which all resulted from a loss of a relationship which negatively effected financial instability and consequently required a medication change and then psychosis. Current CHRISTIANE is 3 and current PHQ9 is 3. Would like to focus on relapse prevention and rebuilding her life. Experiencing symptoms of anxiety/depression as she fears a relapse. 01/23/2024 Generalized anxiety disorder (ICD-10 - F41.1) Assessment completed 09/14/21 and copied from Marimar Era is a 56 year old female who presented for counseling following a bipolar episode and hospitalization in May 2020. She had been seeing a counselor and psychiatrist at [facility] and transferred to [facility]. 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 Era is x2 and she has no children. She has a bachelor's degree in accounting. Era denies SI. She has recently lost 80 pounds though a healthy diet and excercise. She uses ETOH on occasions and denies illegal drug use and mj. Quit smoking cigarettes when she turned 51 years old. Hx of 4 bipolar with psychosis episodes which all resulted from a loss of a relationship which negatively effected financial instability and consequently required a medication change and then psychosis. Current CHRISTIANE is 3 and current PHQ9 is 3. Would like to focus on relapse prevention and rebuilding her life. Experiencing symptoms of anxiety/depression as she fears a relapse. 02/06/2024 Bipolar disorder, in full remission, most recent episode manic (ICD-10 - F31.74) Social Engagement and Activity - Assessment: The patient has been making efforts to engage in social activities and maintain connections with friends and family. - Plan: - Encourage the patient to continue participating in social activities and maintaining connections with friends and family. - Suggest exploring new social activities or groups to further expand her social network. Physical Activity and Exercise - Assessment: The patient enjoys swimming and exercising in the pool but has not engaged in this activity during the summer. - Plan: - Encourage the patient to resume swimming and other physical activities she enjoys. - Discuss the benefits of regular exercise on mental and physical health. - Recommend setting achievable goals for physical activity and exercise. Coping Strategies and Self-Care - Assessment: Recommended a book about changing her mindset and approach to daily tasks and self-care. The book is called \How to Keep House While Drowning\ and provides strategies for reframing tasks and self-care. - Schedule a follow-up appointment to discuss progress and any additional strategies or resources that may be helpful. 02/06/2024 Generalized anxiety disorder (ICD-10 - F41.1) Social Engagement and Activity - Assessment: The patient has been making efforts to engage in social activities and maintain connections with friends and family. - Plan: - Encourage the patient to continue participating in social activities and maintaining connections with friends and family. - Suggest exploring new social activities or groups to further expand her social network. Physical Activity and Exercise - Assessment: The patient enjoys swimming and exercising in the pool but has not engaged in this activity during the summer. - Plan: - Encourage the patient to resume swimming and other physical activities she enjoys. - Discuss the benefits of regular exercise on mental and physical health. - Recommend setting achievable goals for physical activity and exercise. Coping Strategies and Self-Care - Assessment: Recommended a book about changing her mindset and approach to daily tasks and self-care. The book is called \How to Keep House While Drowning\ and provides strategies for reframing tasks and self-care. - Schedule a follow-up appointment to discuss progress and any additional strategies or resources that may be helpful. 02/22/2024 Bipolar disorder, current episode depressed, mild (ICD-10 - F31.31) 1. Bipolar I disorder - AIMS= 0 [...] 0 08/14/23 stable 4. Long-term drug therapy 02/22/2024 Generalized anxiety disorder (ICD-10 - F41.1) 1. Bipolar I disorder - AIMS= 0 [...] 0 08/14/23 stable 4. Long-term drug therapy 02/26/2024 Bipolar disorder, current episode depressed, mild (ICD-10 - F31.31) 03/21/2024 Bipolar disorder, in full remission, most recent episode manic (ICD-10 - F31.74) Sleep Apnea - Assessment: The patient underwent a sleep study in [place], which revealed episodes of breath loss during sleep. The patient tried multiple masks and eventually slept well with the tightest mask. Awaiting sleep study report, which will take 7 to 14 days. Alcohol Use - Assessment: The patient reports drinking on , Sunday, and Sunday last weekend but has not consumed alcohol this week. The patient has support from friends and family to reduce alcohol intake. - Plan: Encourage the patient to continue abstaining from alcohol and seek support from friends and family. Monitor the patient's alcohol use and provide resources for alcohol cessation if needed. Financial Stress - Assessment: The patient is experiencing financial stress due to debt and loan repayments. The patient has recently qualified for an [employer] loan and is working on improving their financial situation. - Plan: Encourage the patient to continue working on their financial goals and seek professional financial advice if needed. Monitor the patient's stress levels and provide resources for stress management as appropriate. Spiritual/Religiou s Exploration - Assessment: The patient is considering returning to zoroastrianism and exploring beliefs about the afterlife. - Plan: Encourage the patient to explore their spiritual and episcopalian beliefs and seek support from their community or episcopalian institution. Provide resources for spiritual exploration and growth as needed. 03/21/2024 Generalized anxiety disorder (ICD-10 - F41.1) Sleep Apnea - Assessment: The patient underwent a sleep study in [place], which revealed episodes of breath loss during sleep. The patient tried multiple masks and eventually slept well with the tightest mask. Awaiting sleep study report, which will take 7 to 14 days. Alcohol Use - Assessment: The patient reports drinking on , Sunday, and Sunday last weekend but has not consumed alcohol this week. The patient has support from friends and family to reduce alcohol intake. - Plan: Encourage the patient to continue abstaining from alcohol and seek support from friends and family. Monitor the patient's alcohol use and provide resources for alcohol cessation if needed. Financial Stress - Assessment: The patient is experiencing financial stress due to debt and loan repayments. The patient has recently qualified for an acceleration loan and is working on improving their financial situation. - Plan: Encourage the patient to continue working on their financial goals and seek professional financial advice if needed. Monitor the patient's stress levels and provide resources for stress management as appropriate. Spiritual/Religiou s Exploration - Assessment: The patient is considering returning to zoroastrianism and exploring beliefs about the afterlife. - Plan: Encourage the patient to explore their spiritual and episcopalian beliefs and seek support from their community or episcopalian institution. Provide resources for spiritual exploration and growth as needed. 04/04/2024 Bipolar disorder, in partial remission, most recent [...] sleep specialist for further evaluation and management. Fatigue and Sleep Issues - Assessment: The patient reports feeling tired and worn out towards the end of the week, affecting work performance and daily activities. The patient mentions falling asleep at work and needing to take short naps during the day. - Plan: Encourage patient to maintain a consistent sleep schedule, prioritize self-care, and engage in regular physical activity. Monitor the impact of BiPAP therapy on fatigue levels and sleep quality. Alcohol Consumption - Assessment: The patient reports a reduction in alcohol intake but still experiences the desire to drink to cope with stress. The patient mentions drinking a bottle and a half of wine recently at a social event. - Plan: Encourage patient to continue reducing alcohol consumption and explore alternative coping strategies, such as therapy, support groups, or stress management techniques. Grief and Emotional Well-being - Assessment: The patient reports ongoing grief related to the loss of her parents and recent cancer diagnoses in the family. The patient mentions multiple family members dealing with cancer diagnoses and treatments. - Plan: Encourage patient to seek support from friends, family, and MEMBERSHIP ADMINISTRATOR to process grief and manage emotional well-being. 05/09/2024 Bipolar disorder, in partial remission, most [...] sleep specialist for further evaluation and management. Fatigue and Sleep Issues - Assessment: The patient reports feeling tired and worn out towards the end of the week, affecting work performance and daily activities. The patient mentions falling asleep at work and needing to take short naps during the day. - Plan: Encourage patient to maintain a consistent sleep schedule, prioritize self-care, and engage in regular physical activity. Monitor the impact of BiPAP therapy on fatigue levels and sleep quality. Alcohol Consumption - Assessment: The patient reports a reduction in alcohol intake but still experiences the desire to drink to cope with stress. The patient mentions drinking a bottle and a half of wine recently at a social event. - Plan: Encourage patient to continue reducing alcohol consumption and explore alternative coping strategies, such as therapy, support groups, or stress management techniques. Grief and Emotional Well-being - Assessment: The patient reports ongoing grief related to the loss of her parents and recent cancer diagnoses in the family. The patient mentions multiple family members dealing with cancer diagnoses and treatments. - Plan: Encourage patient to seek support from friends, family, and MEMBERSHIP ADMINISTRATOR to process grief and manage emotional well-being. Anxiety - Assessment: Patient expresses concerns about financial issues, family health problems, and work-related stress. - Plan: - Continue supportive counseling to address anxiety and stressors. - Encourage the patient to engage in stress-reducing activities, such as exercise and relaxation techniques. - Monitor anxiety levels and consider referral to a psychiatrist for medication management if symptoms worsen. Delusional Disorder - Assessment: Patient denies being delusional and insists on the reality of a situation involving a large sum of money. Patient continues to believe in the legitimacy of a potentially fraudulent financial situation. - Plan: - Continue to provide supportive counseling and explore the patient's beliefs and perceptions. - Encourage the patient to attend the previously scheduled psychiatric appointment for further evaluation and management. - Monitor the patient's mental status and consider additional referrals or interventions if symptoms persist or worsen. 06/27/2024 Bipolar disorder, in partial remission, most recent [...] common with first generation antipsychotics) and more. obtain labs PCP 2. Generalized anxiety disorder - Viibryd 40 mg daily and eat 350 calories 3. Abnormal movement - Benztropine 1 mg daily AIMS -0 09/06/21 AIMS=0 12/22/22 AIMS= 0 08/14/23 stable 4. Long-term drug therapy 09/26/2024 Bipolar disorder, in partial remission, most recent episode hypomanic (ICD-10 - F31.71) Sleep Apnea- BIPAP - Assessment: The patient reports a sleep [...] common with first generation antipsychotics) and more. reviewed labs PCP- in chart 2. Generalized anxiety disorder - Viibryd 40 mg daily and eat 350 calories 3. Abnormal movement - Benztropine 1 mg daily AIMS -0 09/06/21 AIMS=0 12/22/22 AIMS= 0 08/14/23 stable 4. Long-term drug therapy 09/26/2024 Generalized anxiety disorder (ICD-10 - F41.1) Sleep Apnea- BIPAP - Assessment: The patient reports a sleep [...] common with first generation antipsychotics) and more. reviewed labs PCP- in chart 2. Generalized anxiety disorder - Viibryd 40 mg daily and eat 350 calories 3. Abnormal movement - Benztropine 1 mg daily AIMS -0 09/06/21 AIMS=0 12/22/22 AIMS= 0 08/14/23 stable 4. Long-term drug therapy 06/27/2024 Generalized anxiety disorder (ICD-10 - F41.1) Sleep [...] common with first generation antipsychotics) and more. obtain labs PCP 2. Generalized anxiety disorder - Viibryd 40 [...] sleep specialist for further evaluation and management. Fatigue and Sleep Issues - Assessment: The patient reports feeling tired and worn out towards the end of the week, affecting work performance and daily activities. The patient mentions falling asleep at work and needing to take short naps during the day. - Plan: Encourage patient to maintain a consistent sleep schedule, prioritize self-care, and engage in regular physical activity. Monitor the impact of BiPAP therapy on fatigue levels and sleep quality. Alcohol Consumption - Assessment: The patient reports a reduction in alcohol intake but still experiences the desire to drink to cope with stress. The patient mentions drinking a bottle and a half of wine recently at a social event. - Plan: Encourage patient to continue reducing alcohol consumption and explore alternative coping strategies, such as therapy, support groups, or stress management techniques. Grief and Emotional Well-being - Assessment: The patient reports ongoing grief related to the loss of her parents and recent cancer diagnoses in the family. The patient mentions multiple family members dealing with cancer diagnoses and treatments. - Plan: Encourage patient to seek support from friends, family, and MEMBERSHIP ADMINISTRATOR to process grief and manage emotional well-being. Anxiety - Assessment: Patient expresses concerns about financial issues, family health problems, and work-related stress. - Plan: - Continue supportive counseling to address anxiety and stressors. - Encourage the patient to engage in stress-reducing activities, such as exercise and relaxation techniques. - Monitor anxiety levels and consider referral to a psychiatrist for medication management if symptoms worsen. Delusional Disorder - Assessment: Patient denies being delusional and insists on the reality of a situation involving a large sum of money. Patient continues to believe in the legitimacy of a potentially fraudulent financial situation. - Plan: - Continue to provide supportive counseling and explore the patient's beliefs and perceptions. - Encourage the patient to attend the previously scheduled psychiatric appointment for further evaluation and management. - Monitor the patient's mental status and consider additional referrals or interventions if symptoms persist or worsen. 04/04/2024 Generalized anxiety disorder (ICD-10 - F41.1) Sleep [...] sleep specialist for further evaluation and management. Fatigue and Sleep Issues - Assessment: The patient reports feeling tired and worn out towards the end of the week, affecting work performance and daily activities. The patient mentions falling asleep at work and needing to take short naps during the day. - Plan: Encourage patient to maintain a consistent sleep schedule, prioritize self-care, and engage in regular physical activity. Monitor the impact of BiPAP therapy on fatigue levels and sleep quality. Alcohol Consumption - Assessment: The patient reports a reduction in alcohol intake but still experiences the desire to drink to cope with stress. The patient mentions drinking a bottle and a half of wine recently at a social event. - Plan: Encourage patient to continue reducing alcohol consumption and explore alternative coping strategies, such as therapy, support groups, or stress management techniques. Grief and Emotional Well-being - Assessment: The patient reports ongoing grief related to the loss of her parents and recent cancer diagnoses in the family. The patient mentions multiple family members dealing with cancer diagnoses and treatments. - Plan: Encourage patient to seek support from friends, family, and MEMBERSHIP ADMINISTRATOR to process grief and manage emotional well-being. 02/22/2024 Other symptoms and signs involving the musculoskeletal system (ICD-10 - R29.898) 1. Bipolar I disorder - AIMS= 0 [...] 0 08/14/23 stable 4. Long-term drug therapy 01/23/2024 Bipolar disorder, in full remission, most recent episode manic (ICD-10 - F31.74) Assessment completed 09/14/21 and copied from Marimar Era is a 56 year old female who presented for counseling following a bipolar episode and hospitalization in May 2020. She had been seeing a counselor and psychiatrist at [facility] and transferred to [facility]. 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 Era is x2 and she has no children. She has a bachelor's degree in accounting. Era denies SI. She has recently lost 80 pounds though a healthy diet and excercise. She uses ETOH on occasions and denies illegal drug use and mj. Quit smoking cigarettes when she turned 51 years old. Hx of 4 bipolar with psychosis episodes which all resulted from a loss of a relationship which negatively effected financial instability and consequently required a medication change and then psychosis. Current CHRISTIANE is 3 and current PHQ9 is 3. Would like to focus on relapse prevention and rebuilding her life. Experiencing symptoms of anxiety/depression as she fears a relapse. 02/22/2024 Other detention (current) drug therapy (ICD-10 - Z79.899) 1. Bipolar I disorder - AIMS= 0 [...] 0 08/14/23 stable 4. Long-term drug therapy 06/27/2024 Bipolar disorder, current episode depressed, mild (ICD-10 [...] common with first generation antipsychotics) and more. obtain labs PCP 2. Generalized anxiety disorder - Viibryd 40 mg daily and eat 350 calories 3. Abnormal movement - Benztropine 1 mg daily AIMS -0 09/06/21 AIMS=0 12/22/22 AIMS= 0 08/14/23 stable 4. Long-term drug therapy 09/26/2024 Bipolar disorder, current episode depressed, mild (ICD-10 - F31.31) Sleep Apnea- BIPAP - Assessment: The patient reports a sleep [...] common with first generation antipsychotics) and more. reviewed labs PCP- in chart 2. Generalized anxiety disorder - Viibryd 40 mg daily and eat 350 calories 3. Abnormal movement - Benztropine 1 mg daily AIMS -0 09/06/21 AIMS=0 12/22/22 AIMS= 0 08/14/23 stable 4. Long-term drug therapy 09/26/2024 Other symptoms and signs involving the musculoskeletal system (ICD-10 - R29.898) Sleep Apnea- BIPAP - Assessment: The patient reports a sleep [...] common with first generation antipsychotics) and more. reviewed labs PCP- in chart 2. Generalized anxiety disorder - Viibryd 40 mg daily and eat 350 calories 3. Abnormal movement - Benztropine 1 mg daily AIMS -0 09/06/21 AIMS=0 12/22/22 AIMS= 0 08/14/23 stable 4. Long-term drug therapy 06/27/2024 Other symptoms and signs involving the musculoskeletal [...] common with first generation antipsychotics) and more. obtain labs PCP 2. Generalized anxiety disorder - Viibryd 40 mg daily and eat 350 calories 3. Abnormal movement - Benztropine 1 mg daily AIMS -0 09/06/21 AIMS=0 12/22/22 AIMS= 0 08/14/23 stable 4. Long-term drug therapy 02/22/2024 Morbid (severe) obesity due to excess calories (ICD-10 - E66.01) 1. Bipolar I disorder - AIMS= 0 [...] 0 08/14/23 stable 4. 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 obtain labs PCP 2. Generalized anxiety disorder - Viibryd 40 mg daily and eat 350 calories 3. Abnormal movement - Benztropine 1 mg daily AIMS -0 09/06/21 AIMS=0 12/22/22 AIMS= 0 08/14/23 stable 4. 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 reviewed labs PCP- in chart 2. Generalized anxiety disorder - Viibryd 40 mg daily and eat 350 calories 3. Abnormal movement - Benztropine 1 mg daily AIMS -0 09/06/21 AIMS=0 12/22/22 AIMS= 0 08/14/23 stable 4. Long-term drug therapy 09/26/2024 Morbid (severe) obesity due to excess calories (ICD-10 - E66.01) Sleep Apnea- BIPAP - Assessment: The patient reports a sleep [...] common with first generation antipsychotics) and more. reviewed labs PCP- in chart 2. Generalized anxiety disorder - Viibryd 40 mg daily and eat 350 calories 3. Abnormal movement - Benztropine 1 mg daily AIMS -0 09/06/21 AIMS=0 12/22/22 AIMS= 0 08/14/23 stable 4. Long-term drug therapy 06/27/2024 Morbid (severe) obesity due to excess calories [...] common with first generation antipsychotics) and more. obtain labs PCP 2. Generalized anxiety disorder - Viibryd 40 mg daily and eat 350 calories 3. Abnormal movement - Benztropine 1 mg daily AIMS -0 09/06/21 AIMS=0 12/22/22 AIMS= 0 08/14/23 stable 4. Long-term drug therapy 05/09/2024 Sleep Apnea - Assessment: The patient reports [...] 4. Long-term drug therapy Plan Of Treatment Next Appt Details Provider Name:Adenike Knutson , 01/02/2025 08:45:00 AM, [facility] [facility] [address], [facility] [address], [place], [address], Insurance Providers Payer Name Payer Address Payer Phone Subscriber Number Group Number Insured Name Patient Relationship to Insured Coverage Start Date Coverage End Date r [address] [address] [place] [address] [phone] [id number] ERA COURTNEY Self - patient is the insured Medical (General) History Medical History History ICD Code Problems: Abnormal movement Benign intracranial hypertension Bipolar disorder in remission Bipolar I disorder Generalized anxiety disorder Long-term drug therapy Morbid obesity Obesity 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
[2024-11-21 06:25] VITALS: BP 161/99; PULSE 87; RESP 18; TEMP 36.1; O2SAT 98
[2024-11-21] MEDS: LACTATED RINGERS 1,000 ML 150 ML IV CONT (06:35)
--- NOTE | 2024-11-21 07:02 | P.PNAN_ITS ---
Anes - Initial Pre Proc Eval Procedure: Operation Date: 11/21/24 07:30 Proposed Procedures p Screening Colonoscopy - Armando Campa MD Date/Time: 11/21/24 07:02 Surgeon: Armando Campa MD Pre Op Diagnosis: Screening Patient Data Age: 59 Gender: F Height: 1.6 m Weight: 141.2 kg Last Vital Signs Temp 36.1 C L 11/21/24 06:25 Pulse 87 11/21/24 06:25 Resp 18 11/21/24 06:25 BP 161/99 H 11/21/24 06:25 Pulse Ox 98 11/21/24 06:25 O2 Del Method Room Air 11/21/24 06:25 Allergies Allergy/AdvReac Type Severity Reaction Status Date / Time doxycycline Allergy Mild Hives Verified 11/21/24 06:23 lisinopril Allergy Mild Hives Verified 11/21/24 06:23 Home Medications ?Medication ?Instructions ?Recorded ?Confirmed ?Type vilazodone 40 mg tablet (Viibryd) 40 mg PO DAILY 08/12/21 11/21/24 History haloperidol 5 mg tablet 5 mg PO DAILY 06/09/22 11/21/24 History benztropine 1 mg tablet 1 mg PO DAILY 10/20/22 11/21/24 History omeprazole 20 mg capsule,delayed 20 mg PO DAILY #90 caps 08/10/23 11/21/24 Rx release spironolactone 50 mg tablet 50 mg PO DAILY #90 tabs 05/21/24 11/21/24 Rx valsartan 160 mg tablet 160 mg PO DAILY #90 tabs 05/21/24 11/21/24 Rx Patient hx anesthesia problems: none Family hx anesthesia problems: none Results Review: All pre-operative results and documents have been reviewed as part of the pre- operative evaluation. [facility] Past Medical History Medical History Right ear pain Colon cancer screening Morbid obesity with BMI of 40.0-44.9, adult Papilledema Pseudotumor cerebri Adult hypothyroidism Benign essential hypertension Bipolar affective disorder Carpal tunnel syndrome on both sides Encounter for long-term (current) use of other medications Former smoker IGT (impaired glucose tolerance) Nummular eczema HEAVENLY on CPAP Other and unspecified hyperlipidemia Trigger thumb, right thumb Surgical History Surgical History History of carpal tunnel surgery Family History Family History Father , Leukemia Hypertension Mother Hypertension Asthma Diabetes mellitus Family history of diabetes mellitus in first degree relative Sibling Hypertension Family history of elevated blood lipids Asthma Family history of hypercholesterolemia Grandparent Cerebrovascular accident Family history of coronary artery disease Other Acute myocardial infarction Social History Social History Social History: Caffeine-coffee/tea Smoking packs per day: 1 Smoking cigarettes per day: 20.0 Years smoked: 15 Smoking pack-years: 15.00 Smoking status: Former smoker Tobacco type: cigarettes and e-cigarettes/vaping Second hand tobacco smoke exposure: Yes Smoking end date: 06/25/15 Alcohol intake: current Drinks per week: 14 Alcohol use details: Social, moderate Substance use: never Substance use type: does not use Lack of Transportation: No Lack of Food: Never True Current Housing: I Have Housing Concerned About Future Housing: No Difficulty Paying Gas/Electric Bills: No Difficulty Paying for Meds: No Currently Unemployed: No Education: Bachelor's Degree Difficulty w/ Childcare or Family Care: No Living arrangements: alone Spiritual care concerns: No Anes - Eval Final PreProcedure Day of Procedure 11/21/24 07:02 Patient weight: super morbidly obese Heart: regular rate and rhythm Lungs: clear to auscultation Airway: Mallampati scale class III Neurological: alert and oriented Last oral intake: >/= 8 hours ASA classification: III Emergent: no Anesthetic plan: proceed Anesthesia type and monitoring: general GIVS and standard monitoring Results Review: All pre-operative results and documents have been reviewed as part of the pre- operative evaluation. Informed Consent: The patient's anesthetic plan and its attendant risks and benefits were discussed with the patient/family/POA. Questions were solicited and answers provided to the satisfaction of the patient/family/POA.
--- NOTE | 2024-11-21 07:34 | PM.HPGS ---
History of Present Illness History of Present Illness Consent: Risks, benefits, and alternatives have been discussed and questions answered. Patient agrees to proceed with procedure. Chief complaint: Screening Narrative: Suha Schwartz is a 59 year old female here for screening colonoscopy Review of Systems Review of Systems: All systems reviewed & are unremarkable except as noted in HPI and below PMFSH Past Medical History Medical History Right ear pain Colon cancer screening Morbid obesity with BMI of 40.0-44.9, adult Papilledema Pseudotumor cerebri Adult hypothyroidism Benign essential hypertension Bipolar affective disorder Carpal tunnel syndrome on both sides Encounter for long-term (current) use of other medications Former smoker IGT (impaired glucose tolerance) Nummular eczema HEAVENLY on CPAP Other and unspecified hyperlipidemia Trigger thumb, right thumb Surgical History Surgical History History of carpal tunnel surgery Family History Family History Father , Leukemia Hypertension Mother Hypertension Asthma Diabetes mellitus Family history of diabetes mellitus in first degree relative Sibling Hypertension Family history of elevated blood lipids Asthma Family history of hypercholesterolemia Grandparent Cerebrovascular accident Family history of coronary artery disease Other Acute myocardial infarction Social History Social History Social History: Caffeine-coffee/tea Smoking packs per day: 1 Smoking cigarettes per day: 20.0 Years smoked: 15 Smoking pack-years: 15.00 Smoking status: Former smoker Tobacco type: cigarettes and e-cigarettes/vaping Second hand tobacco smoke exposure: Yes Smoking end date: 06/25/15 Alcohol intake: current Drinks per week: 14 Alcohol use details: Social, moderate Substance use: never Substance use type: does not use Lack of Transportation: No Lack of Food: Never True Current Housing: I Have Housing Concerned About Future Housing: No Difficulty Paying Gas/Electric Bills: No Difficulty Paying for Meds: No Currently Unemployed: No Education: Bachelor's Degree Difficulty w/ Childcare or Family Care: No Living arrangements: alone Spiritual care concerns: No Meds Home Medications and Allergies Home Medications ?Medication ?Instructions ?Recorded ?Confirmed ?Type vilazodone 40 mg tablet (Viibryd) 40 mg PO DAILY 08/12/21 11/21/24 History haloperidol 5 mg tablet 5 mg PO DAILY 06/09/22 11/21/24 History benztropine 1 mg tablet 1 mg PO DAILY 10/20/22 11/21/24 History omeprazole 20 mg capsule,delayed 20 mg PO DAILY #90 caps 08/10/23 11/21/24 Rx release spironolactone 50 mg tablet 50 mg PO DAILY #90 tabs 05/21/24 11/21/24 Rx valsartan 160 mg tablet 160 mg PO DAILY #90 tabs 05/21/24 11/21/24 Rx Allergies Allergy/AdvReac Type Severity Reaction Status Date / Time doxycycline Allergy Mild Hives Verified 11/21/24 06:23 lisinopril Allergy Mild Hives Verified 11/21/24 06:23 Vital Signs Vital Signs - 24 hr 11/21/24 06:25 Temperature 96.9 F L Pulse Rate 87 Respiratory Rate 18 Blood Pressure 161/99 H Pulse Oximetry 98 Oxygen Delivery Room Air Exam Const: General: comfortable, no acute distress and obese HENMT: Face/Nose/Sinus: Normal nares present Eyes: General: appearance normal, both eyes and all related structures Neck: Neck: no JVD Resp: Auscultation: clear to auscultation bilaterally Cardio: Rate: regular rate Rhythm: regular rhythm GI: Inspection: non-distended GI Palp: Yes Soft to palpation Skin: General skin exam: normal color Neuro: Speech: normal speech Extrem: General: normal to inspection Psych: Mental Status: mental status grossly normal Assessment and Plan Assessment and plan (1) Colon cancer screening: Code(s): Z12.11 - Encounter for screening for malignant neoplasm of colon Status: Acute Assessment and Plan: colonoscopy
[2024-11-21 07:45] VITALS: BP 137/64; PULSE 86; RESP 15; O2SAT 99
--- NOTE | 2024-11-21 07:45 | S_PTH ---
PATIENT: Suha Schwartz LOC: [facility]#:[id number] AGE/SX: 59/F ROOM: RE11/21/[address]: Armando Campa MD : 1965 BED: DIS: 11/21/2024 SPEC #: [id number] RECD: 11/21/24 08:57 STATUS: BONY RELydia #: [id number] MABEL: 11/21/24 07:[address]: Armando Campa DEPT: [facility] Surgical RECD BY: Ame Arroyo ENTERED: 11/21/24 08:58 SP TYPE: Surgical OTHR DR: UNKNOWN,DOCTOR Tissues: A - Colon Polypectomy Procedures: Hematoxylin and Eosin Stain Gross and Microscopic Level 4
[2024-11-21 07:55] VITALS: BP 114/92; PULSE 82; RESP 24; O2SAT 100
[2024-11-21 08:05] VITALS: BP 137/88; PULSE 79; RESP 21; O2SAT 100
== END 2024-11-21 08:18 | disposition home or self-care (01) ==
PROVIDERS: Visit Provider Internal Medicine Gastroenterology
PROC: 0DJD8ZZ Inspection of Lower Intestinal Tract, Via Natural or Artificial Opening Endoscopic (ICD-10-PCS; CPT 45378; principal; 2024-11-21 07:30)
DX: Z12.11 Encounter for screening for malignant neoplasm of colon (principal); D12.5 Benign neoplasm of sigmoid colon; K57.30 Diverticulosis of large intestine without perforation or abscess without bleeding; K64.8 Other hemorrhoids; Z87.891 Personal history of nicotine dependence
CPT/HCPCS: 45385; 88305; J2704; J7120

== ENCOUNTER 2025-03-20 14:13 | Outpatient (CLI) | payer OTHER, SELFPAY ==
--- NOTE | ~2025-03-20 | CT_ITS ---
EXAMINATION: CT lung screening DATE: 03/20/2025 14:39 INDICATION: Former smoker TECHNIQUE: Computed tomography (CT) of the chest was performed without intravenous contrast. The dose-length product was 452.52 mGy-cm. Automated exposure control and iterative reconstruction technique were employed. COMPARISON: CT dated 05/09/2016 FINDINGS: No thoracic lymphadenopathy. Heart size normal. No significant pleural or pericardial effusion. Upper abdomen is unremarkable. No focal airspace consolidation. No pneumothorax. No endobronchial lesions. No suspicious pulmonary nodules or masses. Mild thoracic spondylosis. IMPRESSION: 1. Lung-RADS category 1: Negative. Continue annual screening with noncontrast low-dose chest CT in 12 months. Reviewed, dictated and finalized at location O. IMPRESSION: 1. Lung-RADS category 1: Negative. Continue annual screening with noncontrast l ow-dose chest CT in 12 months.
== END 2025-03-20 14:14 | disposition home or self-care (01) ==
LOC: MICIMG 14:14
PROVIDERS: PCP Nurse Practitioner Family; Visit Provider Nurse Practitioner Family
DX: Z12.2 Encounter for screening for malignant neoplasm of respiratory organs (principal); Z87.891 Personal history of nicotine dependence
CPT/HCPCS: 71271